=== PATIENT | male | born 1935 | race Caucasian/White ===

== ENCOUNTER 2019-07-19 10:54 | Inpatient (IN) | payer MEDICARE, BC ==
[~2019-07-19] VITALS: Ht 180.3 cm; Wt 88.5 kg
[~2019-07-19 10:54] MED LIST: AMLO10 PO; AMLO5 PO; ATOR80 PO; Aspir 8181 MG PO; COLE625 PO; FUROSEMIDE20 MG PO; IRON325 MG PO; ISOD40ER PO; Isosorbide Mono30 MG PO; KEFLEX PO; LISINOPRIL (ZESTRIL) PO; METO100ER PO; PANT40 PO; POTA10T PO; Protonix40 MG PO; Roxicodone5 MG PO; TIZA4 PO; VITAMIN D33000 UNIT PO; Vitamin D2000 UNIT PO; Zestril40 MG
[2019-07-19 11:23] LABS: Source, Urine Urostomy Bag
[2019-07-19 11:40] LABS: BASOPHILS ABSOLUTE AUTO 0.04 K/mm3 (0.00-0.23); BASOPHILS PERCENT AUTO 0 % (0-2); EOSINOPHILS ABSOLUTE AUTO 0.01 K/mm3 (0.00-0.68); EOSINOPHILS PERCENT AUTO 0 % (0-6); Hemoglobin 10.7 g/dL (13.5-17.5); IMMATURE GRAN ABSOLUTE AUTO 0.26 K/mm3 (0.00-0.10); IMMATURE GRAN PERCENT AUTO 1 % (0-1); LYMPHOCYTES ABSOLUTE AUTO 1.24 K/mm3 (0.84-5.20); LYMPHOCYTES PERCENT AUTO 5 % (21-46); MONOCYTES ABSOLUTE AUTO 1.56 K/mm3 (0.16-1.47); MONOCYTES PERCENT AUTO 6 % (4-13); Mean Corpuscular HGB 33.8 pg (26.0-34.0); Mean Corpuscular HGB Conc 32.4 g/dL (31.5-36.5); Mean Corpuscular Volume 104 fL (80-100); Mean Platelet Volume 10.6 fL (9.1-12.4); NEUTROPHILS ABSOLUTE AUTO 21.72 K/mm3 (1.96-9.15); NEUTROPHILS PERCENT AUTO 88 % (41-73); Platelet Count 287 K/mm3 (150-400); RDW Coefficient Variation 13.1 % (11.7-14.2); RDW Standard Deviation 49.9 fL (35.1-46.3); Red Blood Cell Count 3.17 M/mm3 (4.30-5.90); White Blood Cell Count 24.83 K/mm3 (4.00-11.30)
[2019-07-19 11:54] LABS: Appearance, Urine Hazy (Clear); Bilirubin, Urine Neg (Neg); Blood, Urine 2+ (Neg); Color, Urine Yellow (P-Yellow); Glucose Qualitative, Urine Neg (Neg); Ketones, Urine Neg (Neg); Leukocyte Esterase, Urine 3+ (Neg); Nitrite, Urine Pos (Neg); Protein, Urine 2+ (Neg); Urobilinogen, Urine NORM (Normal)
[2019-07-19 12:11] LABS: Albumin, Blood 3.1 g/dL (3.4-5.0); Albumin/Globulin Ratio 0.7 (0.8-1.8); Bilirubin, Total 0.7 mg/dL (0.1-1.0); Bun/Creatinine Ratio 29.9 (12.0-20.0); Calcium, Blood 8.7 mg/dL (8.5-10.1); Creatinine, Blood 1.74 mg/dL (0.60-1.20); Globulin, Blood 4.4 g/dL (2.2-4.0); Potassium, Blood 4.4 mmol/L (3.5-5.5); Total Protein, Blood 7.5 g/dL (6.4-8.2)
[2019-07-19 12:15] LABS: Bacteria Many /hpf; Squamous Epithelial Cells Not Seen /hpf (Few); White Blood Cells, Urine TNTC /hpf (0-5)
[2019-07-19 12:19] LABS: Troponin I 0.047 ng/mL (0.000-0.040)
[2019-07-19] MEDS ORDERED: Prinivil5 MG PO (13:29)
[2019-07-19] MEDS ORDERED: Isosorbide Mono60 MG PO (13:30)
[2019-07-19] MEDS ORDERED: FERSU300 PO (13:53)
[2019-07-19 13:58] LABS: International Normalized Ratio 0.99; Prothrombin Time Results 10.5 Sec (9.7-11.5)
[2019-07-19 17:34] LABS: Troponin I 0.669 ng/mL (0.000-0.040)
--- NOTE | 2019-07-19 19:57 | NUR ---
SHIFT SUMMARY 1610 PT RECEIVED FROM ER. ALERT AND ORIENTED X3. VSS, RUNNING 90% ON ROOM AIR, PLACED ON 2L OXYGEN VIA NC. C/O 6-05/19 BACK / ABDOMINAL PAIN, MEDICATED WITH PRN PAIN MEDS, PT REPOSITIONED FOR COMFORT. LUNG SOUNDS CLEAR, DIMINISHED BASES. PACED ON TELEMETRY RATE 60 PER MANAGER TESTING. MURMUR NOTED ON AUSCULTATION. HYPOACTIVE BOWEL SOUNDS NOTED, COLOSTOMY TO LUQ OF ABDOMEN, SMALL AMOUNT OF FORMED STOOLS IN COLOSTOMY BAG. UROSTOMY TO RUQ OF ABDOMEN TO GRAVITY, DRAINING YELLOW URINE. C/O NEUROPATHY TO BLE. WEAKNESS NOTED TO BLE ALONG WITH GENERALIZED WEAKNESS. CRITICAL TROPONIN CALLED TO DR. KING, NEW ORDERS RECEIVED. WILL CONTINUE TO MONITOR.
[2019-07-19 23:51] LABS: Troponin I 1.24 ng/mL (0.000-0.040)
[2019-07-20 03:49] LABS: BASOPHILS ABSOLUTE AUTO 0.05 K/mm3 (0.00-0.23); BASOPHILS PERCENT AUTO 0 % (0-2); EOSINOPHILS ABSOLUTE AUTO 0.09 K/mm3 (0.00-0.68); EOSINOPHILS PERCENT AUTO 0 % (0-6); Hematocrit 28.7 % (37.0-53.0); Hemoglobin 9.1 g/dL (13.5-17.5); IMMATURE GRAN ABSOLUTE AUTO 0.32 K/mm3 (0.00-0.10); IMMATURE GRAN PERCENT AUTO 1 % (0-1); LYMPHOCYTES PERCENT AUTO 6 % (21-46); MONOCYTES ABSOLUTE AUTO 1.15 K/mm3 (0.16-1.47); MONOCYTES PERCENT AUTO 5 % (4-13); Mean Corpuscular HGB 33.2 pg (26.0-34.0); Mean Corpuscular HGB Conc 31.7 g/dL (31.5-36.5); Mean Corpuscular Volume 105 fL (80-100); Mean Platelet Volume 11.1 fL (9.1-12.4); NEUTROPHILS ABSOLUTE AUTO 21.87 K/mm3 (1.96-9.15); NEUTROPHILS PERCENT AUTO 88 % (41-73); Platelet Count 254 K/mm3 (150-400); RDW Coefficient Variation 13.3 % (11.7-14.2); RDW Standard Deviation 50.9 fL (35.1-46.3); Red Blood Cell Count 2.74 M/mm3 (4.30-5.90); White Blood Cell Count 24.98 K/mm3 (4.00-11.30)
[2019-07-20 04:19] LABS: Albumin, Blood 2.4 g/dL (3.4-5.0); Albumin/Globulin Ratio 0.6 (0.8-1.8); Bilirubin, Total 0.5 mg/dL (0.1-1.0); Bun/Creatinine Ratio 25.6 (12.0-20.0); Creatinine, Blood 1.56 mg/dL (0.60-1.20); Globulin, Blood 3.8 g/dL (2.2-4.0); Potassium, Blood 4.6 mmol/L (3.5-5.5); Total Protein, Blood 6.2 g/dL (6.4-8.2)
--- NOTE | 2019-07-20 06:08 | NUR ---
SHIFT SUMMARY PT HAS REMAINED AOX4 THROUGHOUT SHIFT. VSS. PLEASANT AND COOPERATIVE WITH CARE. PT HAS REMAINED ON BEDREST THROUGHOUT THE NIGHT, ASSISTING WITH TURNS TOLERATED. PT HAS NOT BEEN WANTING TO TURN MUCH THROUGHOUT THE NIGHT DUE TO DISCOMFORT. ATTEMPTED ALTERNATE PAIN RELIEF TECHNIQUES, SUCH REPOSITIONING WITH LITTLE RELIEF. PT HAS REPORTED PAIN TO LOWER BACK AND LOWER ABDOMEN, BUT DENIES PAIN TO CHEST. UROSTOMY HAS DRAINED TO GRAVITY WELL WITH SIGNIFICANT OUTPUT. MEDICATED WITH STOOL SOFTENER ONCE WITH INCREASED STOOL PRODUCTION IN COLOSTOMY BAG. PT DENIES WANT FOR STAFF TO EMPTY COLOSTOMY AT THIS TIME OR REPLACE APPLIANCE WITH ONE OF THAT IS CARRIED BY FACILITY- PT STATES THAT HIS WILL BRING IN SPARE COLOSTOMY BAGS. PT HAS RESTED WELL THROUGHOUT MUCH OF THE NIGHT. HEPARIN DRIP INFUSING PER ORDERS. NO OTHER CHANGES NOTED FROM INITIAL ASSESSMENT. WILL CONTINUE TO MONITOR AND REPORT TO ONCOMING SHIFT RN. BED IN LOW POSITION, CALL LIGHT IN REACH.
--- NOTE | 2019-07-20 08:00 | NUR ---
PT RESTING IN BED THIS MORNING. ALERT AND ORIENTED X3. C/O BACK PAIN 3-02/17, MEDICATED WITH PRN PAIN MEDS WITH AM MEDS. PT STATES NO CHEST PAIN AND VERY LITTLE ABDOMINAL PAIN. PAIN IS MORE LOCALIZED TO LOW BACK. PT REPOSITIONED FOR COMFORT PT ALLOWS. LUNG SOUNDS CLEAR, DIMINISHED BASES. PACED RHYTHM ON TELEMETRY RATE 60. UROSTOMY DRAINING YELLOW URINE. COLOSTOMY BAG FILLING UP WITH FORMED SOFT STOOL, PT AWAITING TO BRING COLOSTOMY SUPPLIES TO CHANGE BAG. PT DECLINES DESIRE TO HAVE WHOLE APPLIANCE CHANGED AT THIS TIME. WEAKNESS NOTED TO BILATERAL FEET. C/O NUMBNESS TO BLE. SCDs ON. WILL CONTINUE TO MONITOR.
[2019-07-20] MEDS ORDERED: CYAN1000I IM (09:52)
--- NOTE | 2019-07-20 18:28 | NUR ---
REPORT RECEIVED FROM JOIE RN AT APPROXIMATELY 1700. DR. KING CAME BY WITH QUESTIONS IF CARDIOLOGY HAS SEEN THIS PT. PT HAS NOT BEEN SEEN BY CARDIOLOGY, BUT CONSULT HAD BEEN CALLED TO ANSWERING SERVICE YESTERDAY AROUND 1800. DR. LORD CALLED AND NOTIFIED OF CONSULT. WILL CONTINUE TO MONITOR AND REPORT TO ONCOMING RN.
--- NOTE | 2019-07-21 04:59 | NUR ---
SHIFT SUMMARY PT HAS REMAINED AOX4 THROUGHOUT SHIFT. VSS. PLEASANT AND COOPERATIVE WITH CARE. PT HAS REMAINED ON BEDREST THROUGHOUT THE NIGHT, BUT IS AGREEABLE TO TURNING MORE FREQUENTLY. PT STATES THAT PAIN HAS DECREASED SIGNIFICANTLY SINCE PREVIOUS SHIFT AND IS MORE CONCENTRATED TO BACK AND NOT ABDOMEN. UROSTOMY DRAINAGE BAG HAS REMAINED PATENT AND DRAINING TO GRAVITY THROUGHOUT SHIFT, COLOSTOMY CONTINUES TO HAVE SMALL, FIRM STOOL OUTPUT THAT OCCASIONALLY WILL CAUSE DISCOMFORT. PT HAS REMAINED NPO SINCE MIDNIGHT IN PREPARATION FOR UPCOMING PROCEDURE IN AM. HEPARIN GTT REMAINS INFUSING PER ORDERS. NO OTHER CHANGES NOTED FROM INITIAL ASSESSMENT. WILL CONTINUE TO MONITOR AND REPORT TO ONCOMING SHIFT RN. BED IN LOW POSITION, CALL LIGHT IN REACH.
--- NOTE | 2019-07-21 08:41 | NUR ---
NURSING PCU DAYSHIFT: Assumed care of pt at approx 0700. A/O, pleasant, cooperative w/care. General weakness noted, c/o chronic numbness of BLE, needs encouragement to move and participate in ADLs. Denies any pain/discomfort at rest this a.m. Skin is intact w/no breakdown noted. Tele in place, paced, no c/o CP/pressure, BP stable, no noted edema. L/S fairly cta t/o, O2 sat upper 80's to low 90's when initially placed on RA, denies dyspnea, no noted cough, continuous bedside O2 monitoring. Abd mildly distended, tender in L quadrants w/palp, ostomy to L abd w/formed stool in bag, urostomy to R abd with clear/yellow urine to drain bag. PIV x2, NS infusing at 125mls/hr, hep gtt infusing at 21.6 mls (13/u/kg/hr) as per pharmacy dosing. After being on room air for approx 15 min, O2 sat decreased to mid 80's, placed back on 2.5L NC, O2 sat now maintaining low 90's. Planning for VLAD this a.m., pt NPO at this time. Pt denies any current needs or questions regarding plan of care, awaiting rounding from children's nursery assistant and PMD, will discuss possible need for PT/OT eval. Call light in reach, cont to monitor for any changes.
[2019-07-21 09:48] LABS: BASOPHILS ABSOLUTE AUTO 0.07 K/mm3 (0.00-0.23); BASOPHILS PERCENT AUTO 0 % (0-2); EOSINOPHILS ABSOLUTE AUTO 0.47 K/mm3 (0.00-0.68); EOSINOPHILS PERCENT AUTO 2 % (0-6); Hematocrit 29.8 % (37.0-53.0); Hemoglobin 9.5 g/dL (13.5-17.5); IMMATURE GRAN ABSOLUTE AUTO 0.56 K/mm3 (0.00-0.10); IMMATURE GRAN PERCENT AUTO 2 % (0-1); LYMPHOCYTES ABSOLUTE AUTO 1.35 K/mm3 (0.84-5.20); LYMPHOCYTES PERCENT AUTO 6 % (21-46); MONOCYTES ABSOLUTE AUTO 0.92 K/mm3 (0.16-1.47); MONOCYTES PERCENT AUTO 4 % (4-13); Mean Corpuscular HGB 33.6 pg (26.0-34.0); Mean Corpuscular HGB Conc 31.9 g/dL (31.5-36.5); Mean Corpuscular Volume 105 fL (80-100); Mean Platelet Volume 10.9 fL (9.1-12.4); NEUTROPHILS ABSOLUTE AUTO 19.54 K/mm3 (1.96-9.15); NEUTROPHILS PERCENT AUTO 85 % (41-73); Platelet Count 257 K/mm3 (150-400); RDW Coefficient Variation 12.9 % (11.7-14.2); RDW Standard Deviation 49.8 fL (35.1-46.3); Red Blood Cell Count 2.83 M/mm3 (4.30-5.90); White Blood Cell Count 22.91 K/mm3 (4.00-11.30)
[2019-07-21 10:14] LABS: Bun/Creatinine Ratio 19.7 (12.0-20.0); Creatinine, Blood 1.27 mg/dL (0.60-1.20); Potassium, Blood 4.3 mmol/L (3.5-5.5); Troponin I 0.338 ng/mL (0.000-0.040)
--- NOTE | 2019-07-21 17:16 | NUR ---
NURSING PCU DAYSHIFT SUMMARY: No significant changes noted t/o the shift. VS remained stable, respiratory and cardiac status unchanged. VLAD completed this a.m. as planned, pt tolerated well and recovered w/o difficulty. Plan for angiogram on Friday, 07/23, per alodize machine helper. Seen by PMD, new d/o received. Pt worked with PT/OT, remains weak though was able to tolerate transfer OOB to chair w/one staff assist, continues to require encouragement to participate in ADL's. Hep gtt and IVF discontinued as per d/o, labs scheduled for a.m. Urostomy and colostomy changed per pt's schedule, tolerated well, both devices continue to have good output. Stool is beginning to soften w/meds as ordered. Stoma and skin under devices appear healthy w/no breakdown noted. Spouse at bedside t/o majority of the shift. Plan of care discussed t/o the day, questions addressed. Pt and family deny any questions/needs at this time. Call light remains in reach, cont to monitor until rpt is given to NOC RN.
[2019-07-22 04:22] LABS: BASOPHILS PERCENT AUTO 1 % (0-2); EOSINOPHILS ABSOLUTE AUTO 0.51 K/mm3 (0.00-0.68); EOSINOPHILS PERCENT AUTO 4 % (0-6); Hematocrit 40.2 % (37.0-53.0); Hemoglobin 13.1 g/dL (13.5-17.5); IMMATURE GRAN ABSOLUTE AUTO 0.75 K/mm3 (0.00-0.10); IMMATURE GRAN PERCENT AUTO 5 % (0-1); LYMPHOCYTES ABSOLUTE AUTO 1.02 K/mm3 (0.84-5.20); LYMPHOCYTES PERCENT AUTO 7 % (21-46); MONOCYTES ABSOLUTE AUTO 0.69 K/mm3 (0.16-1.47); MONOCYTES PERCENT AUTO 5 % (4-13); Mean Corpuscular HGB 32.9 pg (26.0-34.0); Mean Corpuscular HGB Conc 32.6 g/dL (31.5-36.5); Mean Platelet Volume 10.8 fL (9.1-12.4); NEUTROPHILS ABSOLUTE AUTO 11.09 K/mm3 (1.96-9.15); NEUTROPHILS PERCENT AUTO 78 % (41-73); NRBC ABSOLUTE 0.02 K/mm3 (0.00-0.02); NRBC Auto 0.1 /100 WBC (0.0-0.2); Platelet Count 134 K/mm3 (150-400); RDW Coefficient Variation 12.8 % (11.7-14.2); Red Blood Cell Count 3.98 M/mm3 (4.30-5.90); White Blood Cell Count 14.16 K/mm3 (4.00-11.30)
[2019-07-22 04:26] LABS: Mean Corpuscular Volume 101 fL (80-100)
[2019-07-22 04:31] LABS: Bun/Creatinine Ratio 19.8 (12.0-20.0); Creatinine, Blood 1.31 mg/dL (0.60-1.20); Magnesium, Blood 2.1 mg/dL (1.6-2.4); Potassium, Blood 4.2 mmol/L (3.5-5.5)
--- NOTE | 2019-07-22 05:53 | NUR ---
Shift Summary VSS this shift, no acute changes, pt remains alert and oriented. Pt with complaints of pain at begining of shift, medicated with oxycodone per orders with states relief, pt then able to sleep. Pt encouraged to increase movement so as not to become deconditioned during hospital stay. Pt verbalized understanding and assisted in repositioning self in bed. NO events on tele noted. Pt on CPAP with 1L bleed in. Pt denies SOB, denies CP or pressure. SCDs in place and functioning. Colostomy and urostomy patent. Bed low and locked, call light in reach, pt calls appropriately to make needs known. Will continue to monitor and provide care until day RN assumes care.
--- NOTE | 2019-07-22 08:45 | NUR ---
NURSING PCU DAYSHIFT: Assumed care of pt at approx 0700. A/O, pleasant, fairly cooperative w/care. Noted general weakness, requires much encouragement to participate in ADL's. C/O 2-3/10 low back pain, treating w/positioning and meds as ordered. Skin is intact w/no breakdown noted. Tele in place, paced, SBP 150's prior to a.m. meds, no c/o CP/pressure, no noted edema. L/S cta t/o w/dim bases, O2 sat 88-92% on RA, denies dyspnea at rest, no noted cough, continuous bedside O2 monitoring, uses CPAP during periods of sleep. Abd tender, BT+, colostomy present to L abd, urostomy present to R abd with gravity drain to bag, both appliances changed previous day. PIV x2, s/l. No s/s of acute distress at this time. Pt encouraged to get OOB this a.m. though requests to stay in bed to "rest" declining shower or transfer to chair at this time. Provided education regarding risks of staying in bed for extended periods of time, verbalized understanding. Pt denies any current needs or questions regarding plan of care. Seen by gateman, plan for angiogram tomorrow (07/23), pt to be NPO after midnight. Awaiting rounding from PMD, call light in reach, cont to monitor for any changes.
--- NOTE | 2019-07-22 16:54 | NUR ---
Initial Visit: Palliative Care Consult for Medically Fragile and Symptom Management. Pt is A&O and reports tolerable pain level of 3/10 in his lower back. Pt denies dyspnea, nausea, and anxiety. Engaged in therapeutic discussion regarding advanced care planning. Pt reports living at home with his Kelly. He reports his has been struggling with medical issues as well. Pt reports at baseline is independent of his ADL's. Pt has 2 sons, 1 lives in [place] and 1 lives in [place]. Daughter lives in [place] who is raising a disabled child. Pt is of [employer] and denies need for spiritual care visit at this time. He reports members from his temple have been visiting on a regular basis. Educated Pt on disease process and the importance to have routine discussion with PCP and pack press operator in order to plan accordingly. Encouraged Pt to consider permanent waver planning and the possibility of needing assistance with care. Discussed completing AD/POLST and Pt expresses interest. Educated on life sustaining measures including risk factors. Educated on each section to complete for POLST and advanced directive. Pt reports he will discuss with his and other family members and requests 2 copies of each form for him and his . Educated on the importance of activity during hospital stay to prevent decondition with V/U made by Pt. Suggested cardiac rehab if he qualifies and Pt reports unsure if interested but will discuss with his pack press operator during his scheduled visit. Pt reports no other concerns at this time. Spoke with bedside nurse Terri and discussed case. Palliative Care will remain available.
--- NOTE | 2019-07-22 18:21 | NUR ---
NURSING PCU DAYSHIFT SUMMARY: No significant changes noted t/o the shift. Pt continues to require encouragement to get OOB and become more active though pt c/o tiring easily. Worked with PT/OT, spent time OOB in chair while visiting w/spouse and later w/palliative care. Encourage pt to take a shower while OOB though pt stated he needed to rest. Pt planning for discharge to SNF after hospitalization. Plan remains in place for angiogram in a.m. Pt to be NPO after 2400. Pt verbalized understanding of procedure and denies any questions at this time. Call light in reach, pt able to use w/o difficulty. Cont to monitor until rpt is given to NOC RN.
[2019-07-23 04:10] LABS: Hemoglobin 9.1 g/dL (13.5-17.5); Mean Corpuscular HGB 33.6 pg (26.0-34.0); Mean Corpuscular HGB Conc 32.5 g/dL (31.5-36.5); Mean Corpuscular Volume 103 fL (80-100); Platelet Count 269 K/mm3 (150-400); RDW Standard Deviation 48.1 fL (35.1-46.3); Red Blood Cell Count 2.71 M/mm3 (4.30-5.90); White Blood Cell Count 17.86 K/mm3 (4.00-11.30)
[2019-07-23 04:20] LABS: International Normalized Ratio 0.99; Prothrombin Time Results 10.5 Sec (9.7-11.5)
[2019-07-23 04:21] LABS: Anion Gap 5 mmol/L (6-16); Blood Urea Nitrogen 22 mg/dL (8-24); Bun/Creatinine Ratio 20.2 (12.0-20.0); CO2, Blood 22 mmol/L (21-32); Calcium, Blood 7.6 mg/dL (8.5-10.1); Chloride, Blood 115 mmol/L (98-108); Creatinine, Blood 1.09 mg/dL (0.60-1.20); Glomerular Filtration Rate >60 (60-); Glucose, Blood 93 mg/dL (70-99); Potassium, Blood 3.9 mmol/L (3.5-5.5); Sodium, Blood 142 mmol/L (136-145)
--- NOTE | 2019-07-23 04:42 | NUR ---
SHIFT SUMMARY: PATIENT NPO SINCE 0000, MOVEMENT AND ADLS ENCOURAGED. COLOSTOMY AND UROSTOMY DRAINAGE PATIENT, BAGS INTACT AND SEALED WELL, CHANGED 07/22/19. VSS, CALL LIGHT WITHIN REACH, BED LOW AND LOCKED.
[2019-07-23 04:54] LABS: BAND PERCENT MAN 3 % (0-8); BASOPHILS PERCENT MAN 0 % (0-2); EOSINOPHILS ABSOLUTE MAN 0.53 K/mm3 (0.00-0.68); EOSINOPHILS PERCENT MAN 3 % (0-6); LYMPHOCYTES PERCENT MAN 9 % (21-46); MONOCYTES ABSOLUTE MAN 1.07 K/mm3 (0.16-1.47); MONOCYTES PERCENT MAN 6 % (4-13); MYELOCYTE ABSOLUTE MAN 0.17 K/mm3 (0.00-0.00); MYELOCYTE PERCENT MAN 1 % (0-0); NEUTROPHILS ABSOLUTE MAN 14.46 K/mm3 (1.96-9.15); SEG NEUTROPHILS PERCENT MAN 78 % (41-73); TOTAL CELLS COUNTED 100
--- NOTE | 2019-07-23 14:03 | NUR ---
PT ABX STARTED. EATING LUNCH. DORINA. FAMILY AT BEDSIDE.
--- NOTE | 2019-07-23 16:56 | NUR ---
Shift Summary VSS this shift, pt remains breathing easy and unlabored. Pt on RA all shift with o2 >90%. Pt denies feeling SOB or MOTTA. Pt denies CP or pressure. Alert and oriented, able to make needs known, converses appropriately, at bedside. Today is pt and pt's 's anniversary. Pt in good spirits this shift. Dr. Angeltrate in this AM to update pt on plan of care. Pt with WBC increase this am. D/t WBC count, dr. stephens cancelled angio that was planned for this shift. Plan per provider progress note. Pt on regular diet, denies nausea. Colostomy emptied, soft, formed stool. Urostomy draining clear, yellow urine. Otherwise, uneventful shift. Pt resting comfortably in bed, encouraged movement multiple times this shift. Pt worked with PT and OT. C/o pain, medicated per orders. repositioned pt to comfort. Pt in no apparent sign of distress at this time. Will continue to montior and provide care per orders.
--- NOTE | 2019-07-23 19:36 | NUR ---
Code Status: Per dr. Galindo: pt expressed that he desires CPR, Medication, and intubation. Pt states he was not aware of meaning of DNR status. Dr. Galindo to speak with Dr. Starkey about changing Code status Dr. Starkey called to ask about update on Pt code status. Per dr. starkey: Call palliative care to have further discussion with pt about code status. Palliative care called and requested by this RN to speak with pt. Palliative care states they will speak with PCU 7 Palliative called again to see if RN was able to speak with pt, per palliative care, involved with another pt at that time, will come to PCU 7 to speak with him At approx 1935, palliative called again to ask for visit with pt for code status conversation. Per palliative care, will come before end of palliative care shift to speak with pt.
--- NOTE | 2019-07-23 20:42 | NUR ---
Clinical Visit: Pt pleasant. He relayes his medical history. Discussion on code status. He understands the risk vs benefit to life saving interventions. He is wanting to be full code at this time. has advance directive form and POLST form. They will review them in the next couple days - they have 2 copies of both so that she can fill out her directives as well. Pt reports that his pain is managed. No s/s of distress noted. Will remain available to assist with advanced care planning.
[2019-07-24 04:30] LABS: Hematocrit 30.2 % (37.0-53.0); Hemoglobin 9.8 g/dL (13.5-17.5); Mean Corpuscular HGB 33.7 pg (26.0-34.0); Mean Corpuscular HGB Conc 32.5 g/dL (31.5-36.5); Mean Corpuscular Volume 104 fL (80-100); Mean Platelet Volume 10.4 fL (9.1-12.4); NRBC ABSOLUTE 0.02 K/mm3 (0.00-0.02); NRBC Auto 0.1 /100 WBC (0.0-0.2); Platelet Count 292 K/mm3 (150-400); RDW Coefficient Variation 12.8 % (11.7-14.2); RDW Standard Deviation 47.8 fL (35.1-46.3); Red Blood Cell Count 2.91 M/mm3 (4.30-5.90); White Blood Cell Count 20.55 K/mm3 (4.00-11.30)
--- NOTE | 2019-07-24 04:34 | NUR ---
SHIFT SUMMARY ASSUMED CARE OF PT AT APPROX 1900, PT ALERT & ORIENTED AND RESTING IN BED. ALL VSS AND PAIN AT ACCEPTABLE LEVEL PER PT NO INTERVENTION REQUIRED. PATIENT'S O2 SATS AT 1940 WERE AT 92 AND BELOW, AND PT C/O "HEAVY BREATHING;" PT PLACED ON 2L O2 VIA NC WHICH RESOLVED C/O "HEAVY BREATHING," UNTIL APPROX 2129 WHEN SWITCHED TO CPAP WITH 1L O2 INFUSING. PATIENT RESTED COMFORTABLY FOR THE REST OF THE SHIFT WITH NO COMPLAINTS AT BI-HOURLY ROUNDINGS, NO CALLS, AND APPROPRIATE MANNER AT NURSING INTERVENTIONS. WILL CONTINUE TO MONITOR UNTIL PASS PT AND REPORT TO ONCOMING SHIFT.
[2019-07-24 04:51] LABS: BAND PERCENT MAN 2 % (0-8); BASOPHILS PERCENT MAN 0 % (0-2); EOSINOPHILS ABSOLUTE MAN 0.82 K/mm3 (0.00-0.68); EOSINOPHILS PERCENT MAN 4 % (0-6); LYMPHOCYTES ABSOLUTE MAN 1.43 K/mm3 (0.84-5.20); LYMPHOCYTES PERCENT MAN 7 % (21-46); METAMYELOCYTE PERCENT MAN 1 % (0-0); MONOCYTES ABSOLUTE MAN 1.23 K/mm3 (0.16-1.47); MONOCYTES PERCENT MAN 6 % (4-13); MYELOCYTE ABSOLUTE MAN 0.61 K/mm3 (0.00-0.00); MYELOCYTE PERCENT MAN 3 % (0-0); NEUTROPHILS ABSOLUTE MAN 16.23 K/mm3 (1.96-9.15); SEG NEUTROPHILS PERCENT MAN 77 % (41-73); TOTAL CELLS COUNTED 100
[2019-07-24 04:58] LABS: Anion Gap 7 mmol/L (6-16); Blood Urea Nitrogen 19 mg/dL (8-24); Bun/Creatinine Ratio 16.5 (12.0-20.0); CO2, Blood 22 mmol/L (21-32); Calcium, Blood 8.2 mg/dL (8.5-10.1); Chloride, Blood 113 mmol/L (98-108); Creatinine, Blood 1.15 mg/dL (0.60-1.20); Glomerular Filtration Rate >60 (60-); Glucose, Blood 94 mg/dL (70-99); Potassium, Blood 4.3 mmol/L (3.5-5.5); Sodium, Blood 142 mmol/L (136-145)
--- NOTE | 2019-07-24 07:54 | NUR ---
ASSUMED CARE REPORT FROM ELVA WEBBER. PATIENT A&O. NS 125 ML/HR
--- NOTE | 2019-07-24 08:50 | NUR ---
MESSAGE LEFT FOR DR. MCNALLY RE: STOPPING IVF
--- NOTE | 2019-07-24 08:53 | NUR ---
DR. MCNALLY CALLED BACK. ORDER TO STOP IVF
--- NOTE | 2019-07-24 10:57 | NUR ---
MD VISIT DR. GENAO IN. PLAVIX ADDED TO MEDICATIONS FOR DISCHARGE
--- NOTE | 2019-07-24 11:58 | NUR ---
PATIENT BEING DISCHARGED TO [facility]. TRANSPORTATION WILL BE HERE AT 1445.
--- NOTE | 2019-07-24 15:10 | NUR ---
PIV'S X2 DC'D WNL. ASSISTED TO STAND TO PIVOT TO FOR TX BY [facility] TRANSP[facility].
--- NOTE | 2019-07-24 15:20 | NUR ---
REPORT GIVEN TO ELVA RUIZ OF [facility]
== END 2019-07-24 15:10 | DRG 871 ==
LOC: ER 10:54 → PCU 13:43
PROVIDERS: Emergency Medicine; Internal Medicine Interventional Cardiology; ADMIT Family Medicine
DX: A41.50 Gram-negative sepsis, unspecified (principal); I33.0 Acute and subacute infective endocarditis; I21.4 Non-ST elevation (NSTEMI) myocardial infarction; N17.9 Acute kidney failure, unspecified; I44.2 Atrioventricular block, complete; N99.531 Infection of continent stoma of urinary tract; Z87.891 Personal history of nicotine dependence; Z85.46 Personal history of malignant neoplasm of prostate; Z90.49 Acquired absence of other specified parts of digestive tract; Z90.79 Acquired absence of other genital organ(s); Z95.0 Presence of cardiac pacemaker; N18.3 Chronic kidney disease, stage 3 (moderate); I12.9 Hypertensive chronic kidney disease with stage 1 through stage 4 chronic kidney disease, or unspecified chronic kidney disease; D63.1 Anemia in chronic kidney disease; K21.9 Gastro-esophageal reflux disease without esophagitis; Z95.1 Presence of aortocoronary bypass graft; E78.00 Pure hypercholesterolemia, unspecified; I25.10 Atherosclerotic heart disease of native coronary artery without angina pectoris; Z95.2 Presence of prosthetic heart valve
CPT/HCPCS: 36415; 71046; 74177; 76770; 80048; 80053; 81001; 82550; 83605; 83690; 83735; 84484; 85025; 85610; 85730; 87040; 87077; 87086; 87186; 93005; 93010; 93306; 93312; 93325; 94762; 96361; 96365; 96374-59; 96375; 96376; 97110; 97116; 97162; 97166; 97530; 97535; 99284-25; 99285-25; A9270; C9113; J0696; J1100; J1170; J1644; J1650; J1885; J2250; J2270; J2310; J2405; J3010; J3420; J7030; Q9967

== ENCOUNTER → 2019-08-19 | Outpatient (CLI) | payer MEDICARE, BC ==
[~2019-08-19] MED LIST changes: +CYAN1000I IM; +FERSU300 PO; +Isosorbide Mono60 MG PO; +Prinivil5 MG PO
== END | disposition home or self-care (01) ==
LOC: LAB SHORT 13:57 → LAB 13:57
DX: N39.0 Urinary tract infection, site not specified (principal)
CPT/HCPCS: 87077; 87086

== ENCOUNTER 2019-09-11 04:34 | Inpatient (IN) | payer MEDICARE, BC ==
[~2019-09-11] VITALS: Ht 177.8 cm; Wt 79.7 kg
[2019-09-11 05:11] LABS: Source, Urine Urostomy Bag
[2019-09-11 05:14] LABS: Bilirubin, Urine Neg (Neg); Blood, Urine 3+ (Neg); Glucose Qualitative, Urine Neg (Neg); Ketones, Urine Neg (Neg); Leukocyte Esterase, Urine 2+ (Neg); Nitrite, Urine Neg (Neg); Protein, Urine 2+ (Neg); Urobilinogen, Urine NORM (Normal)
[2019-09-11 05:17] LABS: BASOPHILS ABSOLUTE AUTO 0.04 K/mm3 (0.00-0.23); BASOPHILS PERCENT AUTO 0 % (0-2); EOSINOPHILS ABSOLUTE AUTO 0.06 K/mm3 (0.00-0.68); EOSINOPHILS PERCENT AUTO 1 % (0-6); Hematocrit 38.6 % (37.0-53.0); Hemoglobin 12.4 g/dL (13.5-17.5); IMMATURE GRAN ABSOLUTE AUTO 0.09 K/mm3 (0.00-0.10); IMMATURE GRAN PERCENT AUTO 1 % (0-1); LYMPHOCYTES ABSOLUTE AUTO 1.62 K/mm3 (0.84-5.20); LYMPHOCYTES PERCENT AUTO 14 % (21-46); MONOCYTES ABSOLUTE AUTO 0.79 K/mm3 (0.16-1.47); MONOCYTES PERCENT AUTO 7 % (4-13); Mean Corpuscular HGB 33.1 pg (26.0-34.0); Mean Corpuscular HGB Conc 32.1 g/dL (31.5-36.5); Mean Corpuscular Volume 103 fL (80-100); NEUTROPHILS ABSOLUTE AUTO 9.26 K/mm3 (1.96-9.15); NEUTROPHILS PERCENT AUTO 78 % (41-73); RDW Coefficient Variation 13.4 % (11.7-14.2); RDW Standard Deviation 50.1 fL (35.1-46.3); Red Blood Cell Count 3.75 M/mm3 (4.30-5.90); White Blood Cell Count 11.86 K/mm3 (4.00-11.30)
[2019-09-11 05:22] LABS: Mean Platelet Volume 11.7 fL (9.1-12.4); Platelet Count 194 K/mm3 (150-400)
[2019-09-11 05:24] LABS: Appearance, Urine Hazy (Clear); Color, Urine Yellow (P-Yellow)
[2019-09-11 05:27] LABS: Amorphous Light (0-Heavy); Bacteria Mod /hpf; Squamous Epithelial Cells Rare /hpf (Few); Triple Phosphate Crystals Mod /hpf
[2019-09-11 06:10] LABS: Alanine Aminotransfer (ALT/SGP 18 U/L (12-78); Albumin, Blood 3.2 g/dL (3.4-5.0); Albumin/Globulin Ratio 0.7 (0.8-1.8); Alk Phos 89 U/L (50-136); Anion Gap 8 mmol/L (6-16); Aspartate Aminotrans (AST/SGOT 17 U/L (12-37); Bilirubin, Total 0.5 mg/dL (0.1-1.0); Blood Urea Nitrogen 20 mg/dL (8-24); Bun/Creatinine Ratio 14.4 (12.0-20.0); CO2, Blood 27 mmol/L (21-32); Calcium, Blood 9.2 mg/dL (8.5-10.1); Chloride, Blood 106 mmol/L (98-108); Creatinine, Blood 1.39 mg/dL (0.60-1.20); Globulin, Blood 4.3 g/dL (2.2-4.0); Glomerular Filtration Rate 52 (60-); Glucose, Blood 110 mg/dL (70-99); Potassium, Blood 4.7 mmol/L (3.5-5.5); Sodium, Blood 141 mmol/L (136-145); Total Protein, Blood 7.5 g/dL (6.4-8.2); Troponin I <0.015 ng/mL (0.000-0.040)
--- NOTE | 2019-09-11 18:08 | NUR ---
PT. LYING COMFORTABLY IN BED WATCHING TV. IV FLUIDS RUNNING. REPORTS PAIN IS ONLY AT A 2-3 AT THIS TIME. "NOT BAD AT ALL" PT. STATES. PT. 100% PACED AT 60. REPORTED HE THOUGHT HE PASSED A LITTE GAS. NO OTHER NOTEABLE CHANGES THIS SHIFT. HOME CPAP IN ROOM AND RT HAS CHECKED IT AND ITS READY TO GO.
[2019-09-12 04:37] LABS: BASOPHILS ABSOLUTE AUTO 0.02 K/mm3 (0.00-0.23); BASOPHILS PERCENT AUTO 0 % (0-2); EOSINOPHILS ABSOLUTE AUTO 0.39 K/mm3 (0.00-0.68); EOSINOPHILS PERCENT AUTO 3 % (0-6); Hematocrit 35.6 % (37.0-53.0); Hemoglobin 11.1 g/dL (13.5-17.5); IMMATURE GRAN ABSOLUTE AUTO 0.05 K/mm3 (0.00-0.10); IMMATURE GRAN PERCENT AUTO 0 % (0-1); LYMPHOCYTES PERCENT AUTO 7 % (21-46); MONOCYTES ABSOLUTE AUTO 0.69 K/mm3 (0.16-1.47); MONOCYTES PERCENT AUTO 5 % (4-13); Mean Corpuscular HGB 32.4 pg (26.0-34.0); Mean Corpuscular HGB Conc 31.2 g/dL (31.5-36.5); Mean Corpuscular Volume 104 fL (80-100); Mean Platelet Volume 10.5 fL (9.1-12.4); NEUTROPHILS ABSOLUTE AUTO 10.98 K/mm3 (1.96-9.15); NEUTROPHILS PERCENT AUTO 84 % (41-73); Platelet Count 259 K/mm3 (150-400); RDW Coefficient Variation 13.4 % (11.7-14.2); RDW Standard Deviation 51.2 fL (35.1-46.3); Red Blood Cell Count 3.43 M/mm3 (4.30-5.90); White Blood Cell Count 13.03 K/mm3 (4.00-11.30)
[2019-09-12 04:59] LABS: Bun/Creatinine Ratio 14.3 (12.0-20.0); Calcium, Blood 8.3 mg/dL (8.5-10.1); Creatinine, Blood 1.4 mg/dL (0.60-1.20); Potassium, Blood 4.2 mmol/L (3.5-5.5)
--- NOTE | 2019-09-12 06:38 | NUR ---
SHIFT SUMMARY PATIENT HAD NO OUTPUT FROM HIS OSTOMY. REPORTS SOME FEELING OF AIR COMING OUT OF IT. HE SLEPT WITH HIS CPAP ON ALL NIGHT. TELE SHOWS HIS HEART TO BE PACED AT 60. PATIENT REMAINS NPO. IV IN RIGHT FA PATENT AND INFUSING. BED IN LOWEST POSITION WITH WHEELS LOCKED. CALL LIGHT AND BELONGINGS WITHIN REACH. REPORT GIVEN TO ONCOMING RN.
--- NOTE | 2019-09-12 19:05 | NUR ---
PT. DOING BETTER TODAY, PASSING GAS AND HAS BEEN STARTED ON CL BY DR. VICENTE. UP IN CHAIR AND AMB IN [facility] WITH FWW AND METAL PATTERNMAKER APPRENTICE.
--- NOTE | 2019-09-13 04:47 | NUR ---
SHIFT SUMMARY PATIENT IN A PLEASANT AND COOPORATIVE MOOD. FIELD START IV IN RIGHT FOREARM REMOVED AND NEW IV PLACED IN LEFT FOREARM. IV FLUSHED AND INFUSING. PATIENT IS PASSING GAS THROUGH COLOSTOMY, BUT IS NOT PASSING STOOL YET. HE STATES THAT HE IS NO LONGER EXPERIENCING THE PAIN THAT HE HAS BEEN IN PAST DAYS. OSTOMY SYSTEMS CHANGED FOR BOTH COLOSTOMY AND UROSTOMY. BED IN LOWEST POSITION WITH BRAKES LOCKED AND ALARM ON. CALL LIGHT WITHIN REACH. REPORT GIVEN TO ONCOMING RN.
[2019-09-13 05:11] LABS: Albumin, Blood 2.6 g/dL (3.4-5.0); Anion Gap 4 mmol/L (6-16); Blood Urea Nitrogen 18 mg/dL (8-24); Bun/Creatinine Ratio 14.3 (12.0-20.0); CO2, Blood 27 mmol/L (21-32); Calcium, Blood 8.1 mg/dL (8.5-10.1); Chloride, Blood 111 mmol/L (98-108); Creatinine, Blood 1.26 mg/dL (0.60-1.20); Glomerular Filtration Rate 58 (60-); Glucose, Blood 89 mg/dL (70-99); Phosphorus, Blood 2.7 mg/dL (2.5-4.9); Potassium, Blood 4.2 mmol/L (3.5-5.5); Sodium, Blood 142 mmol/L (136-145)
--- NOTE | 2019-09-13 17:23 | NUR ---
SHIFT SUMMARY PT AXO, PLEASANT AND COOPERATIVE WITH CARE. UP FOR A WALK X3 THIS SHIFT WITH PLANS TO ABULATE AGAIN BEFORE THE END OF THE DAY. PT TOLERATING CLEAR AND FULL LIQUID DIET. PT DENIES N/V, PAIN AND SOB. VSS. UROSTOMY AND COLOSTOMY PATENT AND DRAINING. CLEAR YELLOW URINE DRAINING FROM UROSTOMY. BED IN LOW POSITION, CALL LIGHT WITHIN REACH. PT ON TELE, RUNNING PACED BETWEEN 60-70'S. IV PATENT AND SALINE LOCKED.
[2019-09-14 04:10] LABS: BASOPHILS ABSOLUTE AUTO 0.01 K/mm3 (0.00-0.23); BASOPHILS PERCENT AUTO 0 % (0-2); EOSINOPHILS ABSOLUTE AUTO 0.51 K/mm3 (0.00-0.68); EOSINOPHILS PERCENT AUTO 8 % (0-6); Hematocrit 34.5 % (37.0-53.0); Hemoglobin 10.7 g/dL (13.5-17.5); IMMATURE GRAN ABSOLUTE AUTO 0.04 K/mm3 (0.00-0.10); IMMATURE GRAN PERCENT AUTO 1 % (0-1); LYMPHOCYTES ABSOLUTE AUTO 1.82 K/mm3 (0.84-5.20); LYMPHOCYTES PERCENT AUTO 27 % (21-46); MONOCYTES ABSOLUTE AUTO 0.65 K/mm3 (0.16-1.47); MONOCYTES PERCENT AUTO 10 % (4-13); Mean Corpuscular HGB 31.8 pg (26.0-34.0); Mean Corpuscular Volume 102 fL (80-100); Mean Platelet Volume 10.1 fL (9.1-12.4); NEUTROPHILS ABSOLUTE AUTO 3.61 K/mm3 (1.96-9.15); NEUTROPHILS PERCENT AUTO 54 % (41-73); Platelet Count 248 K/mm3 (150-400); RDW Coefficient Variation 13.2 % (11.7-14.2); RDW Standard Deviation 48.3 fL (35.1-46.3); Red Blood Cell Count 3.37 M/mm3 (4.30-5.90); White Blood Cell Count 6.64 K/mm3 (4.00-11.30)
[2019-09-14 04:28] LABS: Albumin, Blood 2.7 g/dL (3.4-5.0); Anion Gap 7 mmol/L (6-16); Blood Urea Nitrogen 15 mg/dL (8-24); Bun/Creatinine Ratio 14.3 (12.0-20.0); CO2, Blood 26 mmol/L (21-32); Calcium, Blood 8.5 mg/dL (8.5-10.1); Chloride, Blood 111 mmol/L (98-108); Creatinine, Blood 1.05 mg/dL (0.60-1.20); Glomerular Filtration Rate >60 (60-); Glucose, Blood 94 mg/dL (70-99); Phosphorus, Blood 2.7 mg/dL (2.5-4.9); Sodium, Blood 144 mmol/L (136-145)
--- NOTE | 2019-09-14 05:14 | NUR ---
SHIFT SUMMARY: A/OX4. VSS. AFEB. SKIN WARM AND DRY. MAKING NEEDS KNOWN. AMB AROUND UNIT WITH 1 ASSIST. ABD SOFT, NONTENDER, NON DISTENDED. DENIES PAIN. NO APPARENT PRESENCE OF STOOL VISIBLE THROUGH COLOSTOMY POUCH. PT REPORTS PASSING "A LOT" OF FLATUS TODAY. BOWEL TONES PRESENT, HYPOACTIVE. NO N/V. BED LOW, CALL BUTTON IN REACH. SLEEPING QUIETLY WITH CPAP ON AT THIS TIME.
[2019-09-14] MEDS ORDERED: Colace100 MG PO (16:14)
--- NOTE | 2019-09-14 17:00 | NUR ---
DICSHARGE INSTRUCTIONS COMPLETED AND DISCUSSED WITH PT EXPRESSING UNDERSTANDING. NO NEW SCRIPTS REQUIRING PHARMACY FAX. PT REPORTED HE WOULD PICK IT UP OTC TOMORROW. HAS BEEN UP IN ROOM AMBULATING INDEPENDENTLY THIS AFTERNOON. TO [place] VIA W/C WITH FRIEND HERE TO PICK HIM UP.
== END 2019-09-14 16:53 | disposition home or self-care (01) | DRG 389 ==
LOC: ER 04:34 → MEDS 09:34 → ER 09:34 → MEDS 11:08 → ENPENDDIS 09-14 15:17 → MEDS 09-14 16:53
PROVIDERS: Emergency Medicine; ADMIT Internal Medicine
DX: K56.609 Unspecified intestinal obstruction, unspecified as to partial versus complete obstruction (principal); S22.089A Unspecified fracture of T11-T12 vertebra, initial encounter for closed fracture; N39.0 Urinary tract infection, site not specified; K21.9 Gastro-esophageal reflux disease without esophagitis; I12.9 Hypertensive chronic kidney disease with stage 1 through stage 4 chronic kidney disease, or unspecified chronic kidney disease; N18.3 Chronic kidney disease, stage 3 (moderate); D50.9 Iron deficiency anemia, unspecified; G47.33 Obstructive sleep apnea (adult) (pediatric); I25.10 Atherosclerotic heart disease of native coronary artery without angina pectoris; Z95.2 Presence of prosthetic heart valve; Z95.0 Presence of cardiac pacemaker; Z93.3 Colostomy status; B96.89 Other specified bacterial agents as the cause of diseases classified elsewhere
CPT/HCPCS: 36415; 74018; 74176; 80048; 80053; 80069; 81001; 83605; 83690; 84484; 85025; 87040; 87077; 87086; 94762; 96365; 96375; 97110; 97112; 97116; 97161; 97165; 97530; 97535; 99285-25; C9113; J0696; J1170; J1650; J2405; J3010; J7030; J7120

== ENCOUNTER 2019-09-29 11:03 | Inpatient (IN) | payer MEDICARE, BC ==
[~2019-09-29] VITALS: Ht 180.3 cm; Wt 79.8 kg
[~2019-09-29 11:03] MED LIST changes: +Colace100 MG PO
[2019-09-29 11:56] LABS: BASOPHILS ABSOLUTE AUTO 0.05 K/mm3 (0.00-0.23); BASOPHILS PERCENT AUTO 0 % (0-2); EOSINOPHILS ABSOLUTE AUTO 0.15 K/mm3 (0.00-0.68); EOSINOPHILS PERCENT AUTO 1 % (0-6); Hematocrit 43.3 % (37.0-53.0); Hemoglobin 13.8 g/dL (13.5-17.5); IMMATURE GRAN ABSOLUTE AUTO 0.11 K/mm3 (0.00-0.10); IMMATURE GRAN PERCENT AUTO 1 % (0-1); LYMPHOCYTES PERCENT AUTO 16 % (21-46); MONOCYTES ABSOLUTE AUTO 0.92 K/mm3 (0.16-1.47); MONOCYTES PERCENT AUTO 5 % (4-13); Mean Corpuscular HGB 32.5 pg (26.0-34.0); Mean Corpuscular HGB Conc 31.9 g/dL (31.5-36.5); Mean Corpuscular Volume 102 fL (80-100); Mean Platelet Volume 10.5 fL (9.1-12.4); NEUTROPHILS ABSOLUTE AUTO 12.98 K/mm3 (1.96-9.15); NEUTROPHILS PERCENT AUTO 77 % (41-73); Platelet Count 424 K/mm3 (150-400); RDW Coefficient Variation 14.1 % (11.7-14.2); RDW Standard Deviation 50.5 fL (35.1-46.3); Red Blood Cell Count 4.24 M/mm3 (4.30-5.90); White Blood Cell Count 16.91 K/mm3 (4.00-11.30)
[2019-09-29 12:11] LABS: Source, Urine Voided
[2019-09-29 12:12] LABS: Albumin, Blood 3.8 g/dL (3.4-5.0); Albumin/Globulin Ratio 0.8 (0.8-1.8); Bilirubin, Total 0.5 mg/dL (0.1-1.0); Calcium, Blood 9.8 mg/dL (8.5-10.1); Creatinine, Blood 1.33 mg/dL (0.60-1.20); Globulin, Blood 4.5 g/dL (2.2-4.0); Potassium, Blood 4.5 mmol/L (3.5-5.5); Total Protein, Blood 8.3 g/dL (6.4-8.2)
[2019-09-29 12:25] LABS: Bilirubin, Urine Neg (Neg); Blood, Urine 1+ (Neg); Glucose Qualitative, Urine Neg (Neg); Ketones, Urine Neg (Neg); Leukocyte Esterase, Urine 1+ (Neg); Nitrite, Urine Neg (Neg); Protein, Urine 2+ (Neg); Urobilinogen, Urine NORM (Normal)
[2019-09-29 12:40] LABS: Appearance, Urine Clear (Clear); Color, Urine Yellow (P-Yellow)
[2019-09-29 12:43] LABS: Bacteria Rare /hpf; Red Blood Cells, Urine 0-2 /hpf (0-2); Squamous Epithelial Cells Not Seen /hpf (Few)
[2019-09-29] MEDS ORDERED: COLE625 PO (15:50)
[2019-09-29] MEDS ORDERED: CYANOCOBAL1000 MCG/1 IM (15:51)
--- NOTE | 2019-09-29 18:16 | NUR ---
PATIENT ARRIVAL. CAME VIA STRETCHER, NOTED TO BE IN PAIN. RN CALLED PROVIDER TO GIVE MEDICATION PER EMAR. NG TUBE PLACED ( 1 ATTEMPT ) ON LOW INTERMITTENT SUCTION. GURGLING NOTED UPON AIR ENTRANCE THROUGH AUSCULTATION. DRAINING LIGHT GREEN TO BROWN. NEW IV PLACED LFA. IV FLUIDS ADMINISTERED.
--- NOTE | 2019-09-29 19:48 | NUR ---
PATIENT SITTING IN BED, FENTANYL 25MCQ GIVEN FOR PAIN OF THE ABDOMIN. ABDOMIN DISTENDED AND FIRM, NGT TO INTERMINTENT SUCTION WITH LIGHT BROWN BILE NOTED. NO NAUSEA AT THIS TIME. BT HYPOACTIVE, COLOSTOMY TO LEFT LOWER QUADRANT INTACT, NOTHING IN THE BAG. UROSTOMY TO THE RLQ WITH CLEAR YELLOW URINE IN IT. LUNG SOUNDS ARE CLEAR THROUGHOUT, HR REGULAR. SCDS ON AND WORKING, IV INFUSING LACTATED RINGERS. CALL LIGHT IN REACH.
--- NOTE | 2019-09-29 21:10 | NUR ---
PATIENT REPORTS PAIN OF 8-10 AFTER RECEIVING FENTANYL 25MCQ. PATIENT IS MOANING AND RESTLESS. STATES PAIN IS UNTOLERABLE. IT IS CAUSING BP TO INCREASE AND NAUSEA. CALLED HOSPITLIST MARCELINA WRAPPER STEMMER HAND. INFORMED OF SITUATION. NEW ORDERS RECEIVED FOR CHANGE IN PAIN MEDS, ALONG WITH SOME OTHER ORDERS. PLEASE SEE ORDER LIST.
[2019-09-30 05:38] LABS: Anion Gap 9 mmol/L (6-16); Blood Urea Nitrogen 25 mg/dL (8-24); Bun/Creatinine Ratio 20.8 (12.0-20.0); CO2, Blood 23 mmol/L (21-32); Calcium, Blood 9.6 mg/dL (8.5-10.1); Chloride, Blood 107 mmol/L (98-108); Glomerular Filtration Rate >60 (60-); Glucose, Blood 111 mg/dL (70-99); Potassium, Blood 4.4 mmol/L (3.5-5.5); Sodium, Blood 139 mmol/L (136-145)
--- NOTE | 2019-09-30 06:21 | NUR ---
SHIFT SUMMARY: 84 Y/O MALE ADMITTED FOR SBO. AT START OF SHIFT HE HAS ALOT OF PAIN AND DISCOMFORT. FENTANYL WAS GIVEN AND DID NOT WORK. CALLED MD GOT NEW ORDERS FOR DILAUDID, PULSE OX, NAUSEA MEDS. DILAUDID 1MG WAS GIVEN THIS RELEIVED HIS PAIN OF 10 TO A 5. HE DID DROP ON HIS PULSE OX FOR A MINUTE OR TWO BUT WITH ADJUSTMENTS UP IN BED RESOLVED IT. HE SLEPT GOOD AFTERWARDS THEN WOKE ONE OTHER TIME WITH PAIN. GAVE HIM ANOTHER DOSE, WHICH HELPED TO RELEIVE HIS PAIN. NGT HAD 350CC OF BILE OUT. IV FLUIDS INFUSED WITH 1703 IN. PO MEDS WERE HELD PER MD. VITALS HAVE REMAINED STABLE ONCE PAIN WAS STABLE. NO OTHER CHANGES OCCURED THIS SHIFT. WILL REPORT TO DAY SHIFT.
--- NOTE | 2019-09-30 18:39 | NUR ---
SHIFT SUMMARY NG TUBE REMOVED. BOWEL MOVEMENT NOTED. PATIENT TOOK A SHOWER TODAY. IN GOOD SPIRITS. NO NAUSEA, PAIN SIGNIFICANTLY DECREASED TODAY.
--- NOTE | 2019-10-01 06:12 | NUR ---
SHIFT SUMMARY PATIENT HAPPY AND PLEASANT. WAS ABLE TO SLEEP ALL NIGHT LONG. HE HAD NO C/O PAIN OR NAUSEA. IV IN LEFT ARM IS PATENT AND INFUSING LR AT 75 MLS AN HOUR. BED IN LOWEST POSITION WITH WHEELS LOCKED. CALL LIGHT AND BELONGINGS WITHIN REACH.
--- NOTE | 2019-10-01 17:18 | NUR ---
PT ALERT AND ORIENTED THROUGHOUT THIS SHIFT. PT AMBULATED THROUGHOUT THE UNIT WITH STANDBY ASSIST THIS AM. PT ADVANCED TO CLEAR LIQUID DIET THIS AM. PT TOLERATING WELL. PT UP IN CHAIR FOR LUNCH. PT HAS HAD MULTIPLE VISITORS THROUGHOUT THIS SHIFT. PT CURRENTLY RESTING IN BED.
--- NOTE | 2019-10-02 06:28 | NUR ---
SHIFT SUMMARY: VSS. AFEB. A/OX4. MAKING NEEDS KNOWN. DENIES PAIN, NAUSEA, VOMITING. NO BM OBSERVED IN COLOSTOMY POUCH. PT STATES THAT HE FEELS A SMALL AMOUNT OF BM AT THE STOMA SITE. BOWEL TONES HYPOACTIVE. ABD NONTENDER, NONDISTENDED. NO FLATUS OBSERVED IN COLOSTOMY BAG. WALKED THE HALLS X 1 TONIGHT AND HAS REMAINED IN BED SINCE. SLEPT INTERMITTENTLY THROUGHT THE NIGHT. CALL BUTTON IN REACH, BED LOW.
--- NOTE | 2019-10-02 16:45 | NUR ---
SHIFT SUMMARY: PT IS A/O X 4 AND HAS NO C/O PAIN. PT REMAINS ON CLEAR LIQUID DIET AND DENIES ANY N/V. LR CONTINUES TO RUN ORDERED. COLOSTOMY AND UROSTOMY STOMAS AND BAGS WERE BOTH CHANGED WITH HOME SUPPLIES AND THIS NURSE ASSISTED WHILE HE DID SO WITH HIS HOME ROUTINE. THEY ARE BOTH PATENT. PT IS VERY PLEASANT AND COOPERATIVE WITH HIS CARE. HIS AND DAUGHTER SPENT MOST OF THE DAY VISITING HIM. PT IS ABLE TO MAKE HIS NEEDS KNOWN AND CALLS FOR HELP WHEN NEEDED. HES WATCHING THE [employer] GAME AND HAS HIS CALL LIGHT IN REACH.
[2019-10-03 04:53] LABS: Anion Gap 5 mmol/L (6-16); Blood Urea Nitrogen 20 mg/dL (8-24); Bun/Creatinine Ratio 20.7 (12.0-20.0); CO2, Blood 28 mmol/L (21-32); Calcium, Blood 8.4 mg/dL (8.5-10.1); Chloride, Blood 110 mmol/L (98-108); Creatinine, Blood 0.96 mg/dL (0.60-1.20); Glomerular Filtration Rate >60 (60-); Glucose, Blood 98 mg/dL (70-99); Potassium, Blood 3.8 mmol/L (3.5-5.5); Sodium, Blood 143 mmol/L (136-145)
--- NOTE | 2019-10-03 05:41 | NUR ---
SHIFT SUMMARY: VSS. AFEB. A/OX4. COMMUNICATES NEEDS. ABD SOFT, NON-TENDER, MILD BLOATING. PT REPORTS PASSING GAS THROUGH COLOSTOMY. NO STOOL VISIBLE IN STOMA POUCH TONIGHT. BT ACTIVE. DENIES N/V. SLEPT THROUGH MUCH OF THE NIGHT AND HAS AWOKEN IN GOOD SPIRITS. BED LOW, CALL BUTTON IN REACH.
--- NOTE | 2019-10-03 16:13 | NUR ---
SHIFT SUMMARY: PT HAS BEEN A/O X 4 WITH NO C/O PAIN. PT DENIES ANY NAUSEA AND HAS HAD A LARGE BM TODAY. PT WAS ASSISTED TO TAKE A SHOWER THIS AFTERNOON. HIS DIET HAS BEEN ADVANCED TO FULL LIQUIDS. IV FLUIDS HAVE INFUSED ORDERED WITH NO ISSUES. PT IS VERY PLEASANT AND COOPERATIVE WITH HIS CARE. HE IS ABLE TO MAKE HIS NEEDS KNOWN AND USES HIS CALL LIGHT FOR HELP WHEN NEEDED.
--- NOTE | 2019-10-04 07:27 | NUR ---
SHIFT SUMMARY: VSS. AFEB. A/OX4. DENIES PAIN. ABD SOFT NON-TENDER, NON-DISTENDED. NO BM IN COLOSTOMY POUCH. PASSING FLATUS. UROSTOMY DRAINING YELLOW URINE WITH WHITE SEDIMENT. DENIES N/V. SLEPT WELL. BED LOW, CALL BUTTON IN REACH.
[2019-10-04] MEDS ORDERED: MIRALAX17 GM PO (14:35)
[2019-10-04] MEDS ORDERED: DOC250 PO (14:36)
--- NOTE | 2019-10-04 14:52 | NUR ---
PT HAS BEEN A/O X 4 WITH NO C/O PAIN. HE DENIES ANY NAUSEA AND HIS BOWELS CONTINUE TO MOVE. OSTOMY AND UROSTOMY REMIAN PATENT. PT DCD HOME WITH AND SON. RX FAXED TO [facility] IN [place] PER PT REQUEST. IV REMOVED WITH NO ISSUE. ALL PERSONAL BELONGINGS SENT WITH PT. ALL MEDS AND FOLLOWS UP APPTS REVIEWED WITH PT AND WHO BOTH VERBALIZE AN UNDERSTANDING. PCP FOLLOW UP SCHEDULED FOR 10/11. PT STABLE UPON DC.
== END 2019-10-04 14:58 | disposition home or self-care (01) | DRG 389 ==
LOC: ER 11:03 → MEDS 11:04 → ENPENDDIS 10-04 12:27 → MEDS 10-04 14:58
PROVIDERS: Emergency Medicine; ADMIT Internal Medicine
DX: K56.609 Unspecified intestinal obstruction, unspecified as to partial versus complete obstruction (principal); I44.2 Atrioventricular block, complete; D63.8 Anemia in other chronic diseases classified elsewhere; D72.829 Elevated white blood cell count, unspecified; I25.10 Atherosclerotic heart disease of native coronary artery without angina pectoris; Z95.2 Presence of prosthetic heart valve; K21.9 Gastro-esophageal reflux disease without esophagitis; C61 Malignant neoplasm of prostate; Z95.1 Presence of aortocoronary bypass graft; N18.9 Chronic kidney disease, unspecified; I12.9 Hypertensive chronic kidney disease with stage 1 through stage 4 chronic kidney disease, or unspecified chronic kidney disease; Z93.3 Colostomy status; Z96.3 Presence of artificial larynx; Z95.0 Presence of cardiac pacemaker; Z85.048 Personal history of other malignant neoplasm of rectum, rectosigmoid junction, and anus; Z87.891 Personal history of nicotine dependence
CPT/HCPCS: 36415; 74176; 80048; 80053; 81001; 83690; 85025; 93005; 93010; 94660; 94762; 96361; 96372; 96374; 96375; 96376; 99285-25; G0378; J1170; J1650; J2405; J3010; J3420; J7120

== ENCOUNTER 2019-10-19 07:49 | Day surgery (SDC) | payer MEDICARE, BC ==
[~2019-10-19] VITALS: Ht 177.8 cm; Wt 82.0 kg
[~2019-10-19 07:49] MED LIST changes: +ACET325 PO; +CLOP75 PO; +CYANOCOBAL1000 MCG/1 IM; +DOC250 PO; +MELA3 PO; +MIRALAX17 GM PO; +NITR.4SL SL; +TRAM50 PO; +TRAZ50 PO
--- NOTE | 2019-10-19 13:25 | NUR ---
ASSUMED CARE OF PT AT THIS TIME. PT RESTING ON L SIDE. SITES REMAIN CLEAR. L RADIAL TR BAND IN PLACE AND R FEMORAL SITE. VSS. NADN. PT REPORTS, "I THINK THE TYLENOL IS HELPING". CALL LIGHT WITHIN REACH. FAMILY AT BEDSIDE.
--- NOTE | 2019-10-19 13:57 | NUR ---
DR GENAO TO ROOM DISCUSSING PLAN OF CARE WITH PT AND FAMILY. VSS
--- NOTE | 2019-10-19 15:08 | NUR ---
PT AND S/O VERBALIZES UNDERSTANDING WRITTEN AND VERBAL ORDERS. DENIES QUESTIONS. VSS. BOTH SITES REMAIN CLEAR
--- NOTE | 2019-10-19 15:47 | NUR ---
PT TR BAND DEFLATED. NO BLEEDING OR HEMATOMA NOTED. VSS. R FEM SITE REMAINS STABLE. CALL LIGHT WITHIN REACH. FAMILY REMAINS AT BEDSIDE.
--- NOTE | 2019-10-19 16:35 | NUR ---
ASSUMED CARE OF PT. PT IS ALET AND ORIENTED, PLEASENT AND COOPERATIVE. PT DENIES PAIN, SOB OR NAUSEA. MONITOR V PACED 60-70'S, B/P 141/81, SPO2 97% RA. R FEMORAL SITE NO SWELLING/HEMATOMA, YUSEF AND TEGADERM DRSG INTACT, RLE PULSES 1+ X 2. L RADIAL SITE NO SWELLING/HEMATOMA, TR BAND IN PLACE-FULLY DELFATED. PT'S AT BEDSIDE ATTENTIVE.
--- NOTE | 2019-10-19 16:50 | NUR ---
PT AMB IN THE RECOVERY ROOM AND OUT TO THE [facility], R GROIN AND L RADIAL SITES UNCHANGED.
--- NOTE | 2019-10-19 17:20 | NUR ---
PT WAS ASSISTED GETTING DRESSED, R GROIN AND L RADIAL SITE UNCHANGED; TR BAND REMOVED WITH CLOTH DOT AND WRIST IMMOBILIZER PLACED. IV REMOVED-CANNULA INTACT.
--- NOTE | 2019-10-19 17:30 | NUR ---
REVIEWED DISCHARGE INSTRUCTIONS, MED LIST AND "AFTER CARE" INSTRUCTIONS WITH PT AND ; VERBALIZED GOOD UNDERSTANDING. PT LEFT FACILITY VIA W/C, CONDITION STABLE.
== END 2019-10-19 17:30 | disposition home or self-care (01) ==
LOC: MHTC 07:49
PROC: B201YZZ Plain Radiography of Multiple Coronary Arteries using Other Contrast (ICD-10-PCS; principal; 2019-10-19)
PROC: B205YZZ Plain Radiography of Left Heart using Other Contrast (ICD-10-PCS; principal; 2019-10-19)
PROC: 4A023N7 Measurement of Cardiac Sampling and Pressure, Left Heart, Percutaneous Approach (ICD-10-PCS; principal; 2019-10-19)
PROC: B203YZZ Plain Radiography of Multiple Coronary Artery Bypass Grafts using Other Contrast (ICD-10-PCS; principal; 2019-10-19)
DX: I21.4 Non-ST elevation (NSTEMI) myocardial infarction (principal); I25.10 Atherosclerotic heart disease of native coronary artery without angina pectoris; Y71.2 Prosthetic and other implants, materials and accessory cardiovascular devices associated with adverse incidents; I34.0 Nonrheumatic mitral (valve) insufficiency; I13.0 Hypertensive heart and chronic kidney disease with heart failure and stage 1 through stage 4 chronic kidney disease, or unspecified chronic kidney disease; N18.9 Chronic kidney disease, unspecified; E78.5 Hyperlipidemia, unspecified; K21.9 Gastro-esophageal reflux disease without esophagitis; G47.33 Obstructive sleep apnea (adult) (pediatric); Z95.1 Presence of aortocoronary bypass graft; T82.897A Other specified complication of cardiac prosthetic devices, implants and grafts, initial encounter; Z99.89 Dependence on other enabling machines and devices; Z79.82 Long term (current) use of aspirin; Z79.899 Other long term (current) drug therapy; Z87.891 Personal history of nicotine dependence; Z95.0 Presence of cardiac pacemaker
CPT/HCPCS: 93005; 93010; 93459; 99152; 99153; A9270; C1769; C1894; J1644; J2250; J3010; J7030; Q9967

== ENCOUNTER 2019-10-26 07:41 | Day surgery (SDC) | payer MEDICARE, BC ==
[~2019-10-26] VITALS: Ht 182.9 cm; Wt 82.0 kg
[2019-10-26 08:59] LABS: Bun/Creatinine Ratio 15.3 (12.0-20.0); Calcium, Blood 8.9 mg/dL (8.5-10.1); Creatinine, Blood 1.44 mg/dL (0.60-1.20); Potassium, Blood 4.4 mmol/L (3.5-5.5)
--- NOTE | 2019-10-26 12:00 | NUR ---
ADMIT ASSESMENT PT FROM FACILITY TECHNICIAN VIA ICU BED AND MONITOR FOR EXTENDED RECOVERY. PT CALM COOPERATIVE AND ALERT AND ORIENT TIMES 4. PT VERY PLEASENT AND DENIES PAIN. HYPERTENSIVE AND RIGHT RADIAL TR BAND IN PLACE WITH 10ML IN THE [place] AND WILL DEFLATE PER PROTOCOL. SPO2 PLACED ON AFFECTED LIMB WITH GOOD PLETH AND WARM AND PINK TO THE TOUCH WITH GOOD CAP REFILL. PACED WITH FREQ PVCS, K+ 4.4. NS PER MD ORDER. RA AND SATS WNL CLEAR AND DIM BILAT AND NO S/S OF RESP DISTRESS. WILL ADVANCE DIET TOLERATED. LEFT LOWER QUAD COLOTOMY IN PLACE AND IN TACT DRAINING FORMED BROW STOOL. RIGHT LOWER QUAD UROSTOMY IN PLACE AND INTACT DRAINING CLEAR YELLOW URINE AND CONVERTED TO BAG DRAINING SYSTEM. SKIN INTACT WILL CONT TO MONITOR AND WEAN TR BAND PER PROTOCOL.
--- NOTE | 2019-10-26 16:47 | NUR ---
PT UPDATE WEANING TR BAND TOLERATED AND MONITORING FOR BLEEDING. SPO2 PLETH REMAINS OF GOOD QUALITY WARM AND PINK DISTAL TEMP AND COLOR, DENIES PAIN AT THIS TIME. COLOSTOMY BAG CHANGED WITH MED BROWN FORMED STOOL, SITE CDI. UROSTOMY DRAINING. GOOD APPETITE AND NO N/V. WILL CONT TO MONITOR
--- NOTE | 2019-10-26 20:00 | NUR ---
ASSUMED CARE OF PT AT 1915. REPORT RECEIVED AT BEDSIDE. PT PRESENTS IN BED. ALERT AND ORIENTED. PLEASANT AND COOPERATIVE WITH CARE AND ASSESSMENT. DENIES COMPLAINTS OF CHEST PAIN OR PRESSURE. LEFT TR BAND CHECKED AND VERIFIED WITH OFFGOING RN. SOME BLOOD NOTED UNDER TR BAND WHICH OFFGOING RN STATES HAS NOT CHANGED. WILL ASSESS FOR ABILITY TO CONTINUE TO DEFLATE CUFF. TEACHING OF PCI PROCEDURE AND STENTS. ALSO PLAN TO REMOVE TR BAND. WILL REVIEW CHART AND PLAN OF CARE FOR THIS PT.
--- NOTE | 2019-10-26 22:34 | NUR ---
CONTINUING TO DEFLATE TR BAND ABLE. MILD OOZING NOTED WHEN 2 ML WAS LET OUT OF CUFF. REINFLATED BY 1 ML. WILL MONITOR FOR OOZING. NO HEMATOMA NOTED. PT UPDATED ON PROCESS.
--- NOTE | 2019-10-27 00:45 | NUR ---
HAVE REMOVED TR BAND. SITE CLEANED. NO OOZING OR HEMATOMA TO NOTE. TRANSPARENT DRESSING APPLIED OVER PUNCTURE SITE. ARM BOARD PLACED TO PROTECT AREA. PT INSTRUCTION GIVEN ON RESTRICTIONS CONCERNING RADIAL ACCESS AND LIMITATIONS. PT VOICES UNDERSTANDING.
[2019-10-27 03:44] LABS: BASOPHILS ABSOLUTE AUTO 0.04 K/mm3 (0.00-0.23); BASOPHILS PERCENT AUTO 0 % (0-2); EOSINOPHILS ABSOLUTE AUTO 0.34 K/mm3 (0.00-0.68); EOSINOPHILS PERCENT AUTO 3 % (0-6); Hematocrit 34.6 % (37.0-53.0); Hemoglobin 11.2 g/dL (13.5-17.5); IMMATURE GRAN ABSOLUTE AUTO 0.06 K/mm3 (0.00-0.10); IMMATURE GRAN PERCENT AUTO 1 % (0-1); LYMPHOCYTES ABSOLUTE AUTO 1.92 K/mm3 (0.84-5.20); LYMPHOCYTES PERCENT AUTO 18 % (21-46); MONOCYTES ABSOLUTE AUTO 0.86 K/mm3 (0.16-1.47); MONOCYTES PERCENT AUTO 8 % (4-13); Mean Corpuscular HGB 31.5 pg (26.0-34.0); Mean Corpuscular HGB Conc 32.4 g/dL (31.5-36.5); Mean Corpuscular Volume 97 fL (80-100); Mean Platelet Volume 10.3 fL (9.1-12.4); NEUTROPHILS ABSOLUTE AUTO 7.63 K/mm3 (1.96-9.15); NEUTROPHILS PERCENT AUTO 70 % (41-73); Platelet Count 299 K/mm3 (150-400); RDW Standard Deviation 50.2 fL (35.1-46.3); Red Blood Cell Count 3.56 M/mm3 (4.30-5.90); White Blood Cell Count 10.85 K/mm3 (4.00-11.30)
[2019-10-27 04:01] LABS: Anion Gap 5 mmol/L (6-16); Blood Urea Nitrogen 19 mg/dL (8-24); Bun/Creatinine Ratio 16.8 (12.0-20.0); CO2, Blood 25 mmol/L (21-32); Calcium, Blood 8.3 mg/dL (8.5-10.1); Chloride, Blood 112 mmol/L (98-108); Creatinine, Blood 1.13 mg/dL (0.60-1.20); Glomerular Filtration Rate >60 (60-); Glucose, Blood 104 mg/dL (70-99); Potassium, Blood 3.9 mmol/L (3.5-5.5); Sodium, Blood 142 mmol/L (136-145)
--- NOTE | 2019-10-27 04:51 | NUR ---
PT HAS BEEN ABLE TO REST COMFORTABLE IN BED. NO COMPLAINTS OF CHEST PAIN OR PRESSURE. VSS. MOVES ABOUT IN BED ON HIS OWN. STENT, PROCEDURE, RADIAL ACCESS SITE, AND POST PROCEDURE CARE AND ANTICOAGULATION DONE. WILL CONTINUE TO MONITOR PT, AND WILL REPORT OFF TO ONCOMING RN. PT DID HAVE SMALL ENDURATION TO LEFT WRIST RADIAL ACCESS SITE. GENTLE REDUCTION DONE. PT TOLERATES WELL, AND NO FURTHER HEMATOMA/ENDURATION TO NOTE.
[2019-10-27] MEDS ORDERED: CLOP75 PO (09:52)
== END 2019-10-27 10:45 | disposition home or self-care (01) ==
LOC: MHTC 07:41 → ICUE 11:50 → MHTC 12:27 → ICUE 12:27 → MHTC 10-27 10:45 → ICUE 10-27 10:45
PROVIDERS: Internal Medicine Interventional Cardiology
PROC: 02C13ZZ Extirpation of Matter from Coronary Artery, Two Arteries, Percutaneous Approach (ICD-10-PCS; principal; 2019-10-26)
PROC: 0271356 Dilation of Coronary Artery, Two Arteries, Bifurcation, with Two Drug-eluting Intraluminal Devices, Percutaneous Approach (ICD-10-PCS; principal; 2019-10-26)
DX: I25.119 Atherosclerotic heart disease of native coronary artery with unspecified angina pectoris (principal); I12.9 Hypertensive chronic kidney disease with stage 1 through stage 4 chronic kidney disease, or unspecified chronic kidney disease; E11.22 Type 2 diabetes mellitus with diabetic chronic kidney disease; N18.9 Chronic kidney disease, unspecified; G47.33 Obstructive sleep apnea (adult) (pediatric); E78.5 Hyperlipidemia, unspecified; Z95.2 Presence of prosthetic heart valve; Z95.1 Presence of aortocoronary bypass graft; Z79.82 Long term (current) use of aspirin; Z79.899 Other long term (current) drug therapy
CPT/HCPCS: 36415; 76937; 80048; 85025; 85347; 92978; 96372; 99152; 99153; C1724; C1725; C1753; C1769; C1874; C1887; C1894; C9113; C9602; G0378; J1644; J2250; J3010; J3420; J7030; Q9967

== ENCOUNTER 2021-03-21 13:56 | Inpatient (IN) | payer MEDICARE, BC ==
[~2021-03-21] VITALS: Ht 177.8 cm; Wt 82.0 kg
[~2021-03-21 13:56] MED LIST changes: +DOCU100 PO; +FEROSUL325 M1 PO; +FURO20 PO; +LIDO700A20 TOP; +LIPITOR 40 MG PO; +LISI5 PO; +Plavix75 MG PO
[2021-03-21 16:32] LABS: BASOPHILS ABSOLUTE AUTO 0.04 K/mm3 (0.00-0.23); BASOPHILS PERCENT AUTO 0 % (0-2); EOSINOPHILS ABSOLUTE AUTO 0.01 K/mm3 (0.00-0.68); EOSINOPHILS PERCENT AUTO 0 % (0-6); Hematocrit 41.9 % (37.0-53.0); Hemoglobin 13.8 g/dL (13.5-17.5); IMMATURE GRAN ABSOLUTE AUTO 0.16 K/mm3 (0.00-0.10); IMMATURE GRAN PERCENT AUTO 1 % (0-1); LYMPHOCYTES ABSOLUTE AUTO 1.52 K/mm3 (0.84-5.20); LYMPHOCYTES PERCENT AUTO 6 % (21-46); MONOCYTES ABSOLUTE AUTO 1.88 K/mm3 (0.16-1.47); MONOCYTES PERCENT AUTO 8 % (4-13); Mean Corpuscular HGB 30.7 pg (26.0-34.0); Mean Corpuscular HGB Conc 32.9 g/dL (31.5-36.5); Mean Corpuscular Volume 93 fL (80-100); Mean Platelet Volume 10.8 fL (9.1-12.4); NEUTROPHILS ABSOLUTE AUTO 21.38 K/mm3 (1.96-9.15); NEUTROPHILS PERCENT AUTO 86 % (41-73); Platelet Count 356 K/mm3 (150-400); RDW Coefficient Variation 16.2 % (11.7-14.2); RDW Standard Deviation 54.9 fL (35.1-46.3); White Blood Cell Count 24.99 K/mm3 (4.00-11.30)
[2021-03-21 17:02] LABS: BASOPHILS PERCENT MAN 0 % (0-2); EOSINOPHILS PERCENT MAN 0 % (0-6); LYMPHOCYTES ABSOLUTE MAN 0.24 K/mm3 (0.84-5.20); LYMPHOCYTES PERCENT MAN 1 % (21-46); MONOCYTES ABSOLUTE MAN 1.99 K/mm3 (0.16-1.47); MONOCYTES PERCENT MAN 8 % (4-13); NEUTROPHILS ABSOLUTE MAN 22.74 K/mm3 (1.96-9.15); SEG NEUTROPHILS PERCENT MAN 91 % (41-73); TOTAL CELLS COUNTED 100
[2021-03-21 17:11] LABS: Albumin, Blood 3.4 g/dL (3.4-5.0); Albumin/Globulin Ratio 0.7 (0.8-1.8); Bilirubin, Total 0.5 mg/dL (0.1-1.0); Bun/Creatinine Ratio 22.4 (12.0-20.0); Calcium, Blood 9.5 mg/dL (8.5-10.1); Creatinine, Blood 1.96 mg/dL (0.60-1.20); Globulin, Blood 4.8 g/dL (2.2-4.0); Potassium, Blood 6.9 mmol/L (3.5-5.5); Total Protein, Blood 8.2 g/dL (6.4-8.2)
[2021-03-21 17:25] LABS: Calcium, Ionized (POC) 1.25 mmol/L (1.10-1.46); Chloride (POC) 104 mmol/L (98-108); Glucose (ISTAT POC) 96 mg/dL (70-99); Hemoglobin (POC) 13.3 g/dL (13.5-17.5); Potassium (POC) 6.8 mmol/L (3.5-5.5); Sodium (POC) 134 mmol/L (135-148); Total CO2 (POC) 24 mmol/L (21-32)
[2021-03-21] MEDS ORDERED: Isosorbide Mono60 MG PO (19:59)
[2021-03-21] MEDS ORDERED: FURO20 PO (20:00)
[2021-03-21] MEDS ORDERED: CALCITONIN-SAL3.7 M5 (20:01)
[2021-03-21] MEDS ORDERED: SULFAMETHOXAZO1 EAC1 PO (20:07)
[2021-03-21 21:34] LABS: Bun/Creatinine Ratio 22.2 (12.0-20.0); Calcium, Blood 8.8 mg/dL (8.5-10.1); Creatinine, Blood 1.89 mg/dL (0.60-1.20); Potassium, Blood 5.5 mmol/L (3.5-5.5)
[2021-03-22 04:55] LABS: Hematocrit 35.7 % (37.0-53.0); Hemoglobin 11.6 g/dL (13.5-17.5); Mean Corpuscular HGB 30.7 pg (26.0-34.0); Mean Corpuscular HGB Conc 32.5 g/dL (31.5-36.5); Mean Corpuscular Volume 94 fL (80-100); Mean Platelet Volume 10.5 fL (9.1-12.4); Platelet Count 274 K/mm3 (150-400); RDW Coefficient Variation 16.5 % (11.7-14.2); RDW Standard Deviation 57.1 fL (35.1-46.3); Red Blood Cell Count 3.78 M/mm3 (4.30-5.90); White Blood Cell Count 22.51 K/mm3 (4.00-11.30)
[2021-03-22 05:20] LABS: Bun/Creatinine Ratio 22.8 (12.0-20.0); Calcium, Blood 8.6 mg/dL (8.5-10.1); Creatinine, Blood 1.71 mg/dL (0.60-1.20); Potassium, Blood 5.5 mmol/L (3.5-5.5)
--- NOTE | 2021-03-22 06:28 | NUR ---
SHIFT SUMMARY PT A&OX4, PLEASANT. SP02>92% ON RA. TELEMETRY READS PACED, HR 60'S. PT HAS ILEOSTOMY WHICH FILLED W/ BROWN, UNFORMED, PASTY STOOL. BAG CHANGED X2 DURING SHIFT. PT HAS UROSTOMY DRAINING TO GRAVITY. PT C/O OF 8/10 INTERMITTENT PAIN, MORPHINE GIVEN X1. PT STATED RELIEF FROM INTERMITTENT PAIN AFTER 2ND COLOSTOMY BAG CHANGE. PT REMAINED NPO. PT SLEPT OFF AND ON DURING SHIFT. CALL LIGHT IN REACH. WILL GIVE REPORT TO ONCOMING NURSE.
--- NOTE | 2021-03-22 13:35 | NUR ---
michael with [employer] is talking with the pt at this time.
--- NOTE | 2021-03-22 13:58 | NUR ---
PT IS EATING WITH GOOD APPETITE.
--- NOTE | 2021-03-22 15:30 | NUR ---
Spiritual care visit conducted. Patient is alert and tells me about his current medical issues but then talks at length about his medical history. He talks about cancers, major heart surgeries, sepsis and on and on and yet he maintains peace and hope. He explains about his [employer]ology marianne and the strength that he gains from his prayers and from attending the [facility]. 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 I reinforce helpful attitudes and practices and provide recitation of scripture, pastoral domestic violence counselor and prayer. Patient responds well and shows signs of being encouraged in his marianne. I will continue to remain available to patient and family.
--- NOTE | 2021-03-22 16:21 | NUR ---
Ate late lunch regular food, and reports no discomfort.
[2021-03-23 03:44] LABS: Hematocrit 34.2 % (37.0-53.0); Hemoglobin 11.1 g/dL (13.5-17.5); Mean Corpuscular HGB 30.3 pg (26.0-34.0); Mean Corpuscular HGB Conc 32.5 g/dL (31.5-36.5); Mean Corpuscular Volume 93 fL (80-100); Mean Platelet Volume 10.7 fL (9.1-12.4); Platelet Count 256 K/mm3 (150-400); RDW Coefficient Variation 16.4 % (11.7-14.2); RDW Standard Deviation 56.2 fL (35.1-46.3); Red Blood Cell Count 3.66 M/mm3 (4.30-5.90); White Blood Cell Count 13.38 K/mm3 (4.00-11.30)
[2021-03-23 04:14] LABS: Albumin, Blood 2.7 g/dL (3.4-5.0); Anion Gap 4 mmol/L (6-16); Blood Urea Nitrogen 39 mg/dL (8-24); Bun/Creatinine Ratio 20.3 (12.0-20.0); CO2, Blood 26 mmol/L (21-32); Calcium, Blood 8.3 mg/dL (8.5-10.1); Chloride, Blood 105 mmol/L (98-108); Creatinine, Blood 1.92 mg/dL (0.60-1.20); Glomerular Filtration Rate 36 (60-); Glucose, Blood 95 mg/dL (70-99); Phosphorus, Blood 2.7 mg/dL (2.5-4.9); Potassium, Blood 4.8 mmol/L (3.5-5.5); Sodium, Blood 135 mmol/L (136-145)
--- NOTE | 2021-03-23 05:59 | NUR ---
SHIFT SUMMARY PT A&OX4, PLEASANT. SP02>92% ON RA. TELEMETRY READS PACED, HR 60'S. PT HAS ILEOSTOMY WHICH FILLED W/ BROWN, UNFORMED, PASTY STOOL. BAG CHANGED X1 DURING SHIFT. PT HAS UROSTOMY DRAINING YELLOW, CLOUDY URINE TO GRAVITY. PT C/O OF LOWER BACK PAIN, MEDICATED W/ TYLENOL PER EMAR AND ENCOURAGED REPOSITIONING W/ SUCCESSFUL RELIEF OF PAIN. PT REMAINED NPO. PT SLEPT OFF AND ON DURING NIGHT. CALL LIGHT IN REACH. WILL GIVE REPORT TO ONCOMING NURSE.
--- NOTE | 2021-03-23 07:29 | NUR ---
Alert, cooperative, and cheerfully conversant this morning. States he is amazed at how quickly he is feeling better. Requesting coffee this morning, and states he is planning to do some walking around the unit today. States took a walk yesterday evening without difficulty. Would also like to get into the shower today.
--- NOTE | 2021-03-23 11:23 | NUR ---
Dr. Kumar here to see the patient.
[2021-03-23] MEDS ORDERED: MIRALAX17 GM PO (12:17)
[2021-03-23] MEDS ORDERED: LEVO750 PO (12:18)
== END 2021-03-23 14:00 | disposition home or self-care (01) | DRG 392 ==
LOC: ER 13:56 → PCU 18:01
PROVIDERS: Emergency Medicine; Internal Medicine; ADMIT Internal Medicine
DX: K59.00 Constipation, unspecified (principal); N17.9 Acute kidney failure, unspecified; E87.2 Acidosis; I44.2 Atrioventricular block, complete; T83.518A Infection and inflammatory reaction due to other urinary catheter, initial encounter; N39.0 Urinary tract infection, site not specified; E87.5 Hyperkalemia; T36.8X5A Adverse effect of other systemic antibiotics, initial encounter; E86.0 Dehydration; I12.9 Hypertensive chronic kidney disease with stage 1 through stage 4 chronic kidney disease, or unspecified chronic kidney disease; N18.30 Chronic kidney disease, stage 3 unspecified; I25.10 Atherosclerotic heart disease of native coronary artery without angina pectoris; J98.4 Other disorders of lung; Z87.891 Personal history of nicotine dependence; Z85.038 Personal history of other malignant neoplasm of large intestine; Z85.46 Personal history of malignant neoplasm of prostate; Z95.3 Presence of xenogenic heart valve; Z95.0 Presence of cardiac pacemaker; Z95.1 Presence of aortocoronary bypass graft; Z93.3 Colostomy status; Z79.899 Other long term (current) drug therapy; Z79.82 Long term (current) use of aspirin; Z79.891 Long term (current) use of opiate analgesic; Z79.02 Long term (current) use of antithrombotics/antiplatelets
CPT/HCPCS: 36415; 74177; 80047; 80048; 80053; 80069; 83605; 83690; 85014; 85025; 85027; 87040; 94762; 96374-59; 96375; 97110; 97116; 97162; 97165; 97530; 99285-25; A9270; J0696; J1644; J1815; J2270; J2405; J7050; J7120; Q9967

== ENCOUNTER 2022-09-07 12:00 | Observation (INO) | payer MEDICARE, BC ==
[~2022-09-07] VITALS: Ht 177.8 cm; Wt 86.2 kg
[~2022-09-07 12:00] MED LIST changes: +CALCITONIN-SAL3.7 M5; +LEVO750 PO; +SULFAMETHOXAZO1 EAC1 PO
[2022-09-07 15:18] LABS: BASOPHILS ABSOLUTE AUTO 0.04 K/mm3 (0.00-0.23); BASOPHILS PERCENT AUTO 0 % (0-2); EOSINOPHILS ABSOLUTE AUTO 0.25 K/mm3 (0.00-0.68); EOSINOPHILS PERCENT AUTO 2 % (0-6); Hematocrit 31.5 % (37.0-53.0); Hemoglobin 10.1 g/dL (13.5-17.5); IMMATURE GRAN ABSOLUTE AUTO 0.12 K/mm3 (0.00-0.10); IMMATURE GRAN PERCENT AUTO 1 % (0-1); LYMPHOCYTES PERCENT AUTO 12 % (21-46); MONOCYTES ABSOLUTE AUTO 1.07 K/mm3 (0.16-1.47); MONOCYTES PERCENT AUTO 9 % (4-13); Mean Corpuscular HGB 30.6 pg (26.0-34.0); Mean Corpuscular HGB Conc 32.1 g/dL (31.5-36.5); Mean Corpuscular Volume 96 fL (80-100); Mean Platelet Volume 10.7 fL (9.1-12.4); NEUTROPHILS PERCENT AUTO 76 % (41-73); Platelet Count 368 K/mm3 (150-400); RDW Standard Deviation 51.8 fL (35.1-46.3); White Blood Cell Count 12.38 K/mm3 (4.00-11.30)
[2022-09-07 15:40] LABS: Albumin, Blood 2.6 g/dL (3.4-5.0); Albumin/Globulin Ratio 0.5 (0.8-1.8); Bilirubin, Total 0.5 mg/dL (0.1-1.0); Bun/Creatinine Ratio 19.6 (12.0-20.0); Calcium, Blood 8.5 mg/dL (8.5-10.1); Creatinine, Blood 1.68 mg/dL (0.60-1.20); Potassium, Blood 4.1 mmol/L (3.5-5.5); Total Protein, Blood 7.6 g/dL (6.4-8.2)
[2022-09-07] MEDS ORDERED: LISI5 PO (18:55)
[2022-09-07] MEDS ORDERED: ICOSAPENT ETHYL1 GM PO (18:57)
[2022-09-07] MEDS ORDERED: FURO40 PO (18:58)
[2022-09-07] MEDS ORDERED: Naproxen375 MG PO (19:00)
--- NOTE | 2022-09-07 21:26 | NUR ---
09/07/222125 Adi Lerma PT RECIEVED ZOSYN IV IN ER PRIOR TO ARRIVAL TO OR. CONFIRMED WITH DR KOCH.
[2022-09-08 04:58] LABS: BASOPHILS ABSOLUTE AUTO 0.03 K/mm3 (0.00-0.23); BASOPHILS PERCENT AUTO 0 % (0-2); EOSINOPHILS ABSOLUTE AUTO 0.01 K/mm3 (0.00-0.68); EOSINOPHILS PERCENT AUTO 0 % (0-6); Hemoglobin 9.2 g/dL (13.5-17.5); IMMATURE GRAN PERCENT AUTO 1 % (0-1); LYMPHOCYTES ABSOLUTE AUTO 0.62 K/mm3 (0.84-5.20); LYMPHOCYTES PERCENT AUTO 7 % (21-46); MONOCYTES ABSOLUTE AUTO 0.09 K/mm3 (0.16-1.47); MONOCYTES PERCENT AUTO 1 % (4-13); Mean Corpuscular HGB Conc 30.7 g/dL (31.5-36.5); Mean Corpuscular Volume 98 fL (80-100); Mean Platelet Volume 10.8 fL (9.1-12.4); NEUTROPHILS ABSOLUTE AUTO 8.47 K/mm3 (1.96-9.15); NEUTROPHILS PERCENT AUTO 91 % (41-73); Platelet Count 319 K/mm3 (150-400); RDW Standard Deviation 54.1 fL (35.1-46.3); Red Blood Cell Count 3.07 M/mm3 (4.30-5.90); White Blood Cell Count 9.32 K/mm3 (4.00-11.30)
[2022-09-08 05:14] LABS: Bun/Creatinine Ratio 19.3 (12.0-20.0); Calcium, Blood 8.3 mg/dL (8.5-10.1); Creatinine, Blood 1.5 mg/dL (0.60-1.20); Potassium, Blood 4.4 mmol/L (3.5-5.5)
--- NOTE | 2022-09-08 05:36 | NUR ---
A/OX4; CALM AND COOPERATIVE. C/O R GROIN INCISIONAL PAIN; RESOLVED WITH PRN TYLENOL PER PATIENT. R GROIN DRESSING INTACT. LISINOPRIL HELD AT BEDTIME D/T MILD HYPOTENSION. UROSTOMY AND COLOSTOMY PATENT. SBA WITH WALKER; APPROX 300 FT THIS SHIFT. CHRONIC R LATERAL ANKLE PRESSURE SORE MANAGER CONTENT, PHOTO PLACED IN CHART. PIV L AC; ABX PER ORDERS. BED ALARM SET. CALL LIGHT IN REACH; ENCOURAGED TO MAKE NEEDS KNOWN.
--- NOTE | 2022-09-08 09:56 | NUR ---
DR KOCH ROUNDED THIS AM, PATEINT OKAYED TO DISCHARGE WITH HER, WAITING FOR HOSPITALIST TO ROUND, PATIENT ALERT AND ORIENTED, MAKES NEEDS KNOWN, CALL LIGHT WITH IN REACH
[2022-09-08] MEDS ORDERED: VISBIOME 112.51 EACH PO (11:11)
[2022-09-08] MEDS ORDERED: CEPH500 PO (11:12)
--- NOTE | 2022-09-08 13:35 | NUR ---
PATIENT DISCHARGED VIA W/C, STATES UNDERSTAND OF INSTRUCTIONS, MEDICATIONS, AND SUDARSHAN DRAIN DRESSING. ALERT AND ORIENTED X4, PATIENT TO DRIVE HIMSELF HOME PER DR KOCH, AND PATIENT HAS NOT HAD ANY MIND ALTERING MEDICATIONS OR NARCOTICS, PLEASANT TO CARE
== END 2022-09-08 14:30 | disposition home or self-care (01) ==
LOC: ER 12:00 → MEDS 12:01 → ER 20:55 → MEDS 22:43
PROVIDERS: Physician Assistant; ADMIT Internal Medicine
DX: L02.214 Cutaneous abscess of groin (principal); I25.10 Atherosclerotic heart disease of native coronary artery without angina pectoris; I25.2 Old myocardial infarction; I13.0 Hypertensive heart and chronic kidney disease with heart failure and stage 1 through stage 4 chronic kidney disease, or unspecified chronic kidney disease; I50.9 Heart failure, unspecified; N18.30 Chronic kidney disease, stage 3 unspecified; E78.5 Hyperlipidemia, unspecified; G47.33 Obstructive sleep apnea (adult) (pediatric); I48.92 Unspecified atrial flutter; K21.9 Gastro-esophageal reflux disease without esophagitis; Z87.891 Personal history of nicotine dependence; Z79.82 Long term (current) use of aspirin; Z79.02 Long term (current) use of antithrombotics/antiplatelets; Z85.46 Personal history of malignant neoplasm of prostate; Z95.0 Presence of cardiac pacemaker; Z95.1 Presence of aortocoronary bypass graft; Z85.048 Personal history of other malignant neoplasm of rectum, rectosigmoid junction, and anus; Z95.5 Presence of coronary angioplasty implant and graft; Z90.49 Acquired absence of other specified parts of digestive tract; Z93.3 Colostomy status; Z93.6 Other artificial openings of urinary tract status; Z90.79 Acquired absence of other genital organ(s); Z95.3 Presence of xenogenic heart valve
CPT/HCPCS: 36415; 74177; 80048; 80053; 83605; 85025; 87070; 87075; 87077; 87147; 87186; 87205; 96366; 96372; 96376; A9270; G0378; J1100; J1650; J2405; J2543; J2704; J2795; J3010; J7040; Q9967

== ENCOUNTER 2023-07-16 18:17 | Emergency (ER) | payer MEDICARE, BC ==
[~2023-07-16] VITALS: Ht 177.8 cm; Wt 83.9 kg
[~2023-07-16 18:17] MED LIST changes: +CEPH500 PO; +FURO40 PO; +ICOSAPENT ETHYL1 GM PO; +Naproxen375 MG PO; +VISBIOME 112.51 EACH PO
[2023-07-16 18:28] VITALS: BP 157/56
== END 2023-07-16 19:52 | disposition home or self-care (01) ==
LOC: ER 18:17
DX: R04.0 Epistaxis (principal); Z79.899 Other long term (current) drug therapy; Z79.82 Long term (current) use of aspirin; I12.9 Hypertensive chronic kidney disease with stage 1 through stage 4 chronic kidney disease, or unspecified chronic kidney disease; N18.30 Chronic kidney disease, stage 3 unspecified; M19.90 Unspecified osteoarthritis, unspecified site; Z87.891 Personal history of nicotine dependence
CPT/HCPCS: 30903; 99283-25

== ENCOUNTER 2024-08-05 08:31 | Day surgery (SDC) | payer MEDICARE, BC ==
[~2024-08-05] VITALS: Ht 177.8 cm; Wt 72.0 kg
[2024-08-05] VITALS (7 sets, daily range): BP systolic 113–135; BP diastolic 44–51
[~2024-08-05 08:31] MED LIST changes: +AMOX500 PO; +ISOMON20 PO; -Protonix40 MG PO; +SOD CITRATE-CIT15 ML PO; +ZYRTEC10 M2 PO
[2024-08-05] MEDS ORDERED: CeFAZolin Sodium 1000 mg Vial ONE (08:47)
[2024-08-05] MEDS ORDERED: NS 500 ML IV ONE (08:48)
[2024-08-05] MEDS ORDERED: NS 1,000 ML IV ONE (11:02)
[2024-08-05] MEDS ORDERED: NS 100 ML IV ONE (11:02)
[2024-08-05] MEDS ORDERED: Midazolam HCl 1MG / ML 2ML Vial ONE (11:02)
[2024-08-05] MEDS ORDERED: FentaNYL Citrate 50 MCG/ML 2 ML Injection ONE (11:02)
[2024-08-05] MEDS ORDERED: CeFAZolin Sodium 2,000 MG VIAL ONE (11:02)
--- NOTE | 2024-08-05 12:22 | NUR ---
PT S/p device change out back to recover room Pt alert and oriented, sitting up in bed. Ice pack applied to site, Site wnl, no swelling or oozing at this time. Pt VSS upon arrival back to unit. Pt denies any pain at this time. Food and beverages provided.
--- NOTE | 2024-08-05 13:15 | NUR ---
350cc of urine dumped from ostomy bag
--- NOTE | 2024-08-05 14:02 | NUR ---
pt assisted to get dressed. site remains unchanged, no oozing or swelling at site. pt. has ice pack in place. pt. vss remain stable. discharge instructions reviewed. pt. denies pain. no new medications, follow up apppointments discussed. pt. verbalized understanding of post care instructions. pt. iv removed, catheter intact. all belogings taken with pt to exit, [facility] pt. madina to stay with pt zackary.
== END 2024-08-05 14:53 | disposition home or self-care (01) ==
LOC: MHTC 08:31
DX: Z45.010 Encounter for checking and testing of cardiac pacemaker pulse generator [battery] (principal); Z95.2 Presence of prosthetic heart valve; I13.0 Hypertensive heart and chronic kidney disease with heart failure and stage 1 through stage 4 chronic kidney disease, or unspecified chronic kidney disease; N18.6 End stage renal disease; I50.9 Heart failure, unspecified; I35.0 Nonrheumatic aortic (valve) stenosis; K21.9 Gastro-esophageal reflux disease without esophagitis; E78.5 Hyperlipidemia, unspecified; G47.33 Obstructive sleep apnea (adult) (pediatric); Z87.891 Personal history of nicotine dependence; Z79.02 Long term (current) use of antithrombotics/antiplatelets; Z79.899 Other long term (current) drug therapy
CPT/HCPCS: 33227; 99152; 99153; C1786; J0690; J2250; J3010; J7030; J7040

== ENCOUNTER 2025-01-07 17:53 | Inpatient (IN) | payer MEDICARE, BC ==
[~2025-01-07] VITALS: Ht 177.8 cm; Wt 71.8 kg
[2025-01-07 19:16] LABS: BASOPHILS ABSOLUTE AUTO 0.02 K/mm3 (0.00-0.23); BASOPHILS PERCENT AUTO 0 % (0-2); EOSINOPHILS ABSOLUTE AUTO 0.11 K/mm3 (0.00-0.68); EOSINOPHILS PERCENT AUTO 1 % (0-6); Hematocrit 32.9 % (37.0-53.0); Hemoglobin 10.8 g/dL (13.5-17.5); IMMATURE GRAN ABSOLUTE AUTO 0.05 K/mm3 (0.00-0.10); IMMATURE GRAN PERCENT AUTO 1 % (0-1); LYMPHOCYTES ABSOLUTE AUTO 1.67 K/mm3 (0.84-5.20); LYMPHOCYTES PERCENT AUTO 16 % (21-46); MONOCYTES ABSOLUTE AUTO 1.01 K/mm3 (0.16-1.47); MONOCYTES PERCENT AUTO 9 % (4-13); Mean Corpuscular HGB 33.1 pg (26.0-34.0); Mean Corpuscular HGB Conc 32.8 g/dL (31.5-36.5); Mean Corpuscular Volume 101 fL (80-100); Mean Platelet Volume 11.3 fL (9.1-12.4); NEUTROPHILS ABSOLUTE AUTO 7.89 K/mm3 (1.96-9.15); NEUTROPHILS PERCENT AUTO 73 % (41-73); Platelet Count 234 K/mm3 (150-400); RDW Coefficient Variation 11.7 % (11.7-14.2); RDW Standard Deviation 42.2 fL (35.1-46.3); Red Blood Cell Count 3.26 M/mm3 (4.30-5.90); White Blood Cell Count 10.75 K/mm3 (4.00-11.30)
[2025-01-07 19:40] LABS: Albumin, Blood 2.9 g/dL (3.4-5.0); Albumin/Globulin Ratio 0.6 (0.8-1.8); Bilirubin, Total 0.3 mg/dL (0.1-1.0); Bun/Creatinine Ratio 31.5 (12.0-20.0); Calcium, Blood 8.9 mg/dL (8.5-10.1); Creatinine, Blood 4.32 mg/dL (0.60-1.20); Globulin, Blood 4.9 g/dL (2.2-4.0); Total Protein, Blood 7.8 g/dL (6.4-8.2)
[2025-01-07] MEDS ORDERED: FLU VACC TS2024-25(6MOS UP)/PF 45 MCG/0.5 ML SYRINGE IM SCH (20:50)
[2025-01-07] MEDS ORDERED: Ondansetron HCl 2 MG / ML 2ML Vial IV PRN (20:50)
[2025-01-07] MEDS ORDERED: Sodium Bicarb 8.4% Inj 100 MEQ in Sodium Chloride 0.45% 1,000 ML IV SCH (21:00)
[2025-01-07] MEDS ORDERED: Sodium Zirconium Cyclosilicate 10 GM Packet PO ONE (21:00)
[2025-01-07] MEDS ORDERED: Heparin Sodium,Porcine 5,000 UNIT/0.5 ML SDV SC SCH ×2 (21:00→22:20)
[2025-01-07 21:22] LABS: Bun/Creatinine Ratio 31.3 (12.0-20.0); Calcium, Blood 8.9 mg/dL (8.5-10.1); Creatinine, Blood 4.25 mg/dL (0.60-1.20); Potassium, Blood 5.4 mmol/L (3.5-5.5)
[2025-01-07 21:34] VITALS: BP 144/46
--- NOTE | 2025-01-07 22:35 | NUR ---
UPDATE: PT ARRIVED FROM ED AT 2121. BRANDON GTT INITIATED. LOKELMA GIVEN. NEW LAB RESULTS RECEIVED AND RELAYED TO DR. UP. NO ORDER CHANGES AT THIS TIME.
[2025-01-08 00:56] VITALS: BP 111/49
[2025-01-08 03:33] VITALS: BP 109/50
[2025-01-08 04:53] LABS: BASOPHILS ABSOLUTE AUTO 0.03 K/mm3 (0.00-0.23); BASOPHILS PERCENT AUTO 0 % (0-2); EOSINOPHILS ABSOLUTE AUTO 0.13 K/mm3 (0.00-0.68); EOSINOPHILS PERCENT AUTO 2 % (0-6); Hematocrit 28.6 % (37.0-53.0); Hemoglobin 9.5 g/dL (13.5-17.5); IMMATURE GRAN ABSOLUTE AUTO 0.03 K/mm3 (0.00-0.10); IMMATURE GRAN PERCENT AUTO 0 % (0-1); LYMPHOCYTES ABSOLUTE AUTO 1.75 K/mm3 (0.84-5.20); LYMPHOCYTES PERCENT AUTO 21 % (21-46); MONOCYTES ABSOLUTE AUTO 0.78 K/mm3 (0.16-1.47); MONOCYTES PERCENT AUTO 9 % (4-13); Mean Corpuscular HGB 33.3 pg (26.0-34.0); Mean Corpuscular HGB Conc 33.2 g/dL (31.5-36.5); Mean Corpuscular Volume 100 fL (80-100); Mean Platelet Volume 11.5 fL (9.1-12.4); NEUTROPHILS ABSOLUTE AUTO 5.64 K/mm3 (1.96-9.15); NEUTROPHILS PERCENT AUTO 67 % (41-73); Platelet Count 210 K/mm3 (150-400); RDW Coefficient Variation 11.5 % (11.7-14.2); RDW Standard Deviation 41.8 fL (35.1-46.3); Red Blood Cell Count 2.85 M/mm3 (4.30-5.90); White Blood Cell Count 8.36 K/mm3 (4.00-11.30)
[2025-01-08 05:19] LABS: Magnesium, Blood 1.4 mg/dL (1.6-2.4)
[2025-01-08 05:20] LABS: Albumin, Blood 2.5 g/dL (3.4-5.0); Albumin/Globulin Ratio 0.6 (0.8-1.8); Bilirubin, Total 0.4 mg/dL (0.1-1.0); Bun/Creatinine Ratio 33.7 (12.0-20.0); Calcium, Blood 8.6 mg/dL (8.5-10.1); Creatinine, Blood 3.8 mg/dL (0.60-1.20); Globulin, Blood 4.2 g/dL (2.2-4.0); Phosphorus, Blood 5.3 mg/dL (2.5-4.9); Potassium, Blood 5.1 mmol/L (3.5-5.5); Total Protein, Blood 6.7 g/dL (6.4-8.2)
[2025-01-08] MEDS ORDERED: Mag Sulfate 1 GM/D5% 100ML 100 ML IV ONE ×2 (06:30→06:45)
[2025-01-08] MEDS ORDERED: Pantoprazole Sodium 40 MG Tab PO SCH (07:30)
[2025-01-08 07:47] VITALS: BP 123/49
[2025-01-08] MEDS ORDERED: Clopidogrel Bisulfate 75 MG Tab PO SCH (09:00)
[2025-01-08] MEDS ORDERED: Lisinopril 5 MG Tab PO SCH (09:00)
[2025-01-08] MEDS ORDERED: Isosorbide Mononitrate 20 MG TAB PO SCH (09:00)
[2025-01-08] MEDS ORDERED: AmLODIPine Besylate 5 MG Tab PO SCH (09:00)
[2025-01-08] MEDS ORDERED: Furosemide 40 MG Tab PO SCH (09:00)
[2025-01-08] MEDS ORDERED: Sodium Bicarb 8.4% Inj 50 MEQ in Sodium Chloride 0.45% 1,000 ML IV SCH (09:10)
[2025-01-08] MEDS ORDERED: HYDROcodone 5-APAP 325 TAB PO PRN (10:50)
[2025-01-08 11:37] VITALS: BP 125/94
--- NOTE | 2025-01-08 17:01 | NUR ---
SHIFT NOTE: PT A/OX4 PLEASANT AND COOPERATIVE WITH CARE. HE IS ON RA WITH NO REPORTS OF SOB. IS ON TELE WITH A PACED RHYTHM AT 60. VSS. HE HAS A UROSTOMY THAT IS PATENT DRAINING YELLOW URINE. HE HAS AN ILIOSTOMY THAT HAS NOT HAD MUCH OUTPUT TODAY. PATIENT STATES IT NORMALLY ONLY NEEDS CHANGED EVERY OTHER DAY. SODIUM BICARB IS INFUSING PER EMAR. PT IS UP WITH 1P ASSIST TO THE CHAIR FOR ALL MEALS AND Q2 TURNED IN BED TO PREVENT SKIN BREAKDOWN. CARE CONTINUES
[2025-01-08 19:53] VITALS: BP 134/45
[2025-01-08] MEDS ORDERED: Heparin Sodium 5000 Units/ML 1ML MDV SC SCH (21:00)
[2025-01-08] MEDS ORDERED: Metoprolol Succinate 50 MG TABCR PO SCH (21:00)
[2025-01-08] MEDS ORDERED: Darbepoetin Alfa in Polysorbat 25 MCG/0.42 ML Syringe SC SCH (22:00)
[2025-01-08 23:11] VITALS: BP 114/48
[2025-01-09 03:20] VITALS: BP 116/49
[2025-01-09 03:59] LABS: Hemoglobin 10.1 g/dL (13.5-17.5)
[2025-01-09 04:29] LABS: Albumin, Blood 2.7 g/dL (3.4-5.0); Anion Gap 10 mmol/L (3-11); Blood Urea Nitrogen 104 mg/dL (8-24); CO2, Blood 25 mmol/L (21-32); Calcium, Blood 8.9 mg/dL (8.5-10.1); Chloride, Blood 109 mmol/L (98-108); Creatinine, Blood 3.25 mg/dL (0.60-1.20); Glomerular Filtration Rate 18 (60-); Glucose, Blood 99 mg/dL (70-99); Magnesium, Blood 1.5 mg/dL (1.6-2.4); Phosphorus, Blood 4.2 mg/dL (2.5-4.9); Potassium, Blood 5.1 mmol/L (3.5-5.5); Sodium, Blood 139 mmol/L (136-145)
--- NOTE | 2025-01-09 05:33 | NUR ---
SHIFT SUMMARY PT HAD AN OVERALL UNEVENTFUL NIGHT. UROSTOMY OUTPUT ADEQUATE, CLEAR YELLOW. CREATININE TRENDING DOWN, NOW AT 3.25. POTASSIUM LEVEL HOLDING 5.1. MAG 1.5. REPLACEMENT ORDERS ENTERED BY DR. UP THIS AM.
[2025-01-09] MEDS ORDERED: Mag Sulfate 1 GM/D5% 100ML 100 ML IV ONE (06:00)
[2025-01-09 07:46] VITALS: BP 111/39
[2025-01-09 08:05] VITALS: BP 112/46
[2025-01-09] MEDS ORDERED: Sodium Zirconium Cyclosilicate 10 GM Packet PO SCH (10:00)
[2025-01-09 10:03] VITALS: BP 119/46
--- NOTE | 2025-01-09 10:41 | NUR ---
AM NOTE: PATIENT ALERT AND ORIENTED. USING CALL LIGHT FOR NEEDS. UP TO RECLINER FOR BREAKFAST WITH ONE PERSON AND FWW. DENIES NUMBNESS/TINGLING. ON ROOM AIR SATING ABOVE 95%. DENIES SOB. LUNG SOUNDS CLEAR AND DIM IN BASES. EVEN AND UNLABORED RESPIRATIONS. TELE SHOWING SR PACED WITH HR 60'S. DENIES CHEST PAIN/PRESSURE/PALPITATIONS. SBP 110'S. IV'S SALINE LOCKED. MAG INFUSED THIS AM. NO EDEMA NOTED. BOWEL TONES PRESENT. ILEOSTOMY AND UROSTOMY CHANGED THIS AM. TOLERATING PO DIET. DENIES ABDOMINAL PAIN/NAUSEA. COMPLAINS OF 3/10 BACK PAIN THIS AM, MEDICATED PER EMAR. SKIN C/D/I. DENIES NEEDS AT THIS TIME, BACK IN BED RESTING. CALL LIGHT IN REACH.
[2025-01-09 11:15] VITALS: BP 111/38
[2025-01-09] MEDS ORDERED: Norco 5-325 Ta1 EACH PO (13:36)
[2025-01-09] MEDS ORDERED: LOKELMA10 GM PO (13:41)
--- NOTE | 2025-01-09 15:53 | NUR ---
DISCHARGE: NO ACUTE CHANGES. VITAL SIGNS STABLE. PATIENT DAUGHTER XIAO IN TO HEAVY EQUIPMENT OPERATOR. THIS RN REVIEWED DISCHARGE INSTRUCTIONS AND EDUCATION. MEDICATIONS FAXED TO [facility]. IV REMOVED WNL. PATIENT LEFT UNIT WITH ALL PERSONAL BELONGINGS AND DISCHARGE PACKET VIA WHEELCHAIR.
== END 2025-01-09 15:00 | disposition home or self-care (01) | DRG 683 ==
LOC: ER 17:53 → PCU 20:01
PROVIDERS: Family Medicine; Internal Medicine Nephrology; ADMIT Internal Medicine
DX: N17.9 Acute kidney failure, unspecified (principal); C18.9 Malignant neoplasm of colon, unspecified; E87.20 Acidosis, unspecified; I44.2 Atrioventricular block, complete; E87.5 Hyperkalemia; N18.5 Chronic kidney disease, stage 5; N25.81 Secondary hyperparathyroidism of renal origin; I12.9 Hypertensive chronic kidney disease with stage 1 through stage 4 chronic kidney disease, or unspecified chronic kidney disease; G31.9 Degenerative disease of nervous system, unspecified; I70.90 Unspecified atherosclerosis; G89.29 Other chronic pain; G47.33 Obstructive sleep apnea (adult) (pediatric); D63.1 Anemia in chronic kidney disease; E88.09 Other disorders of plasma-protein metabolism, not elsewhere classified; E83.39 Other disorders of phosphorus metabolism; E78.00 Pure hypercholesterolemia, unspecified; R94.5 Abnormal results of liver function studies; C61 Malignant neoplasm of prostate; D51.8 Other vitamin B12 deficiency anemias; M85.80 Other specified disorders of bone density and structure, unspecified site; R76.9 Abnormal immunological finding in serum, unspecified; Z87.81 Personal history of (healed) traumatic fracture; Z79.811 Long term (current) use of aromatase inhibitors; Z79.899 Other long term (current) drug therapy; Z85.46 Personal history of malignant neoplasm of prostate; Z93.3 Colostomy status; Z98.890 Other specified postprocedural states; Z87.19 Personal history of other diseases of the digestive system; Z95.1 Presence of aortocoronary bypass graft; Z87.891 Personal history of nicotine dependence; Z95.0 Presence of cardiac pacemaker; Z85.038 Personal history of other malignant neoplasm of large intestine; Z90.79 Acquired absence of other genital organ(s)
CPT/HCPCS: 36415; 76770; 80048; 80053; 80069; 82607; 82947; 83735; 84100; 84153; 85014; 85018; 85025; 93005; 93010; 99285-25; A9270; J0881; J1644; J3475

== ENCOUNTER 2025-02-11 06:07 | Inpatient (IN) | payer MEDICARE, BC ==
[~2025-02-11] VITALS: Ht 177.8 cm; Wt 73.0 kg
[~2025-02-11 06:07] MED LIST changes: +LOKELMA10 GM PO; +Norco 5-325 Ta1 EACH PO
[2025-02-11] MEDS ORDERED: Morphine Sulfate 4 MG/1 ML Injection IV ONE ×2 (06:30→09:45)
[2025-02-11 06:48] LABS: BASOPHILS ABSOLUTE AUTO 0.06 K/mm3 (0.00-0.23); BASOPHILS PERCENT AUTO 0 % (0-2); EOSINOPHILS ABSOLUTE AUTO 0.14 K/mm3 (0.00-0.68); EOSINOPHILS PERCENT AUTO 1 % (0-6); Hemoglobin 8.5 g/dL (13.5-17.5); IMMATURE GRAN ABSOLUTE AUTO 0.51 K/mm3 (0.00-0.10); IMMATURE GRAN PERCENT AUTO 2 % (0-1); LYMPHOCYTES ABSOLUTE AUTO 1.33 K/mm3 (0.84-5.20); LYMPHOCYTES PERCENT AUTO 5 % (21-46); MONOCYTES PERCENT AUTO 8 % (4-13); Mean Corpuscular HGB 32.9 pg (26.0-34.0); Mean Corpuscular HGB Conc 32.7 g/dL (31.5-36.5); Mean Corpuscular Volume 101 fL (80-100); Mean Platelet Volume 10.8 fL (9.1-12.4); NEUTROPHILS ABSOLUTE AUTO 23.81 K/mm3 (1.96-9.15); NEUTROPHILS PERCENT AUTO 85 % (41-73); Platelet Count 322 K/mm3 (150-400); RDW Coefficient Variation 13.9 % (11.7-14.2); RDW Standard Deviation 50.3 fL (35.1-46.3); Red Blood Cell Count 2.58 M/mm3 (4.30-5.90); White Blood Cell Count 27.95 K/mm3 (4.00-11.30)
[2025-02-11 07:17] LABS: Albumin/Globulin Ratio 0.4 (0.8-1.8); Bilirubin, Total 0.5 mg/dL (0.1-1.0); Bun/Creatinine Ratio 27.8 (12.0-20.0); Calcium, Blood 8.4 mg/dL (8.5-10.1); Creatinine, Blood 1.94 mg/dL (0.60-1.20); Globulin, Blood 4.8 g/dL (2.2-4.0); Magnesium, Blood 1.3 mg/dL (1.6-2.4); Potassium, Blood 4.8 mmol/L (3.5-5.5); Total Protein, Blood 6.8 g/dL (6.4-8.2)
[2025-02-11] MEDS ORDERED: Vancomycin HCL 2,000 MG in NS 520 ML IV ONE (08:25)
[2025-02-11] MEDS ORDERED: Piperacillin/Tazobactam Sod 4.5 GM in NS 100 ML IV ONE ×2 (08:25→14:50)
[2025-02-11 09:09] LABS: Source, Urine Urostomy Bag
[2025-02-11] MEDS ORDERED: NS 1,000 ML IV SCH ×2 (09:25→23:00)
[2025-02-11 09:27] LABS: Appearance, Urine Hazy (Clear); Bilirubin, Urine Neg (Neg); Blood, Urine 2+ (Neg); Color, Urine Yellow (P-Yellow); Glucose Qualitative, Urine Neg (Neg); Ketones, Urine Neg (Neg); Leukocyte Esterase, Urine 3+ (Neg); Nitrite, Urine Neg (Neg); Protein, Urine 2+ (Neg); Urobilinogen, Urine NORM (Normal)
[2025-02-11 09:36] LABS: Amorphous Light (0-Heavy); Bacteria Many /hpf; Squamous Epithelial Cells Not Seen /hpf (Few); White Blood Cells, Urine 50-100 /hpf (0-5)
[2025-02-11] MEDS ORDERED: Lactated Ringer's 1,000 ML IV ONE (12:55)
[2025-02-11] MEDS ORDERED: Lactated Ringer's 500 ML IV ONE (12:55)
[2025-02-11] MEDS ORDERED: Morphine Sulfate 4 MG/1 ML Injection IV PRN (14:00)
[2025-02-11] MEDS ORDERED: Vancomycin HCL 1,500 MG in NS 250 ML IV ONE (17:00)
[2025-02-11 21:25] LABS: Influenza A, PCR NEGATIVE (NEGATIVE); Influenza B, PCR NEGATIVE (NEGATIVE); Resp Syncytial Virus, PCR NEGATIVE (NEGATIVE); SARS-Cov-2 (COVID-19) PCR, MMC NEGATIVE (NEGATIVE)
[2025-02-11] MEDS ORDERED: FentaNYL Citrate 50 MCG/ML 2 ML Injection IV PRN (23:00)
[2025-02-11] MEDS ORDERED: Ondansetron HCl 2 MG / ML 2ML Vial IV PRN (23:00)
[2025-02-11] MEDS ORDERED: Piperacillin/Tazobactam Sod 4.5 GM in NS 100 ML IV SCH (23:32)
[2025-02-11 23:52] VITALS: BP 135/41
--- NOTE | 2025-02-12 02:04 | NUR ---
ADMIT NOTE 89 YR OLD MALE ADMITED TO FLOOR FROM THE ED WITH DX OF ABSCESS OF PELVIS MUSCLE OF RIGHT SIDE. ALERT AND ORIENTED. HAS UROSTOMY AD COLOSTOMY. COOPERATIVE. REPORTEDLY PLANS TO SEND TO [facility] WHEN BED AVAILABLE. ORIENTED TO USE OF CALL LIGHT AND BED CONTROL. HOB ELEVATED FOR COMFORT. CALL LIGHT IN REACH. IV DOESNT FLUSH, ANOTHER IV PLACED. IVF OF NS AND IV ANTIBIOTICS INFUSING - SEE MAR FOR DETAILS.
[2025-02-12] MEDS ORDERED: Mag Sulfate 1 GM/D5% 100ML 100 ML IV STA (02:12)
[2025-02-12] MEDS ORDERED: Albumin (Human) 25gm/100ml 100 ML IV ONE (02:15)
[2025-02-12 03:58] VITALS: BP 135/41
--- NOTE | 2025-02-12 04:07 | NUR ---
DR MCNALLY IN TO SEE AND ASSESS PT. ACKNOWEDGED ALBUMIN INFUSING.
--- NOTE | 2025-02-12 04:08 | NUR ---
APPLIED PSYCHOLOGY TEACHER SUMMARY VSS. WAS ADMITTED EARLIER IN THE SHIFT WITH DX OF ABSCESS OF RIGHT PELVIC MUSCLE. 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 MED TELE -PACED IN THE 60'S. ON BEDREST TONIGHT. ALERT AND ORIENTED X 4. IVF OF NS INFUSING AT 75 ML/HR, ALSO RECEIVING ABX, SEE MAR FOR DETAILS. PT WAITING FOR POSSIBLE TRANSFER TO [facility] WHEN BED AVAILABLE. HAS BEEN RESTING QUIELTY WITH INTERMITTENT INTERRUPTIONS FOR ASSESSMENTS, ETC. RAILS UP X 2, CALL LIGHT IN REACH AND BED IN LOW POSITION FOR SAFETY. WILL CONTINUE TO MONITOR
[2025-02-12 04:46] LABS: BASOPHILS PERCENT AUTO 0 % (0-2); EOSINOPHILS ABSOLUTE AUTO 0.07 K/mm3 (0.00-0.68); EOSINOPHILS PERCENT AUTO 0 % (0-6); Hematocrit 28.1 % (37.0-53.0); Hemoglobin 8.9 g/dL (13.5-17.5); IMMATURE GRAN ABSOLUTE AUTO 0.67 K/mm3 (0.00-0.10); IMMATURE GRAN PERCENT AUTO 2 % (0-1); LYMPHOCYTES ABSOLUTE AUTO 1.21 K/mm3 (0.84-5.20); LYMPHOCYTES PERCENT AUTO 4 % (21-46); MONOCYTES ABSOLUTE AUTO 2.18 K/mm3 (0.16-1.47); MONOCYTES PERCENT AUTO 7 % (4-13); Mean Corpuscular HGB 32.8 pg (26.0-34.0); Mean Corpuscular HGB Conc 31.7 g/dL (31.5-36.5); Mean Corpuscular Volume 104 fL (80-100); Mean Platelet Volume 10.5 fL (9.1-12.4); NEUTROPHILS ABSOLUTE AUTO 26.97 K/mm3 (1.96-9.15); NEUTROPHILS PERCENT AUTO 87 % (41-73); Platelet Count 341 K/mm3 (150-400); RDW Coefficient Variation 14.3 % (11.7-14.2); RDW Standard Deviation 53.4 fL (35.1-46.3); Red Blood Cell Count 2.71 M/mm3 (4.30-5.90)
[2025-02-12 05:10] LABS: Albumin, Blood 1.9 g/dL (3.4-5.0); Albumin/Globulin Ratio 0.4 (0.8-1.8); Bilirubin, Total 0.8 mg/dL (0.1-1.0); Bun/Creatinine Ratio 25.3 (12.0-20.0); Calcium, Blood 8.5 mg/dL (8.5-10.1); Creatinine, Blood 1.66 mg/dL (0.60-1.20); Potassium, Blood 4.2 mmol/L (3.5-5.5); Total Protein, Blood 6.9 g/dL (6.4-8.2)
[2025-02-12] MEDS ORDERED: HYDROcodone 5-APAP 325 TAB PO PRN (06:25)
[2025-02-12] MEDS ORDERED: Pantoprazole Sodium 40 MG Tab PO SCH (07:30)
[2025-02-12 08:08] VITALS: BP 125/40
--- NOTE | 2025-02-12 08:24 | NUR ---
MD CALL CLIENT C/O NON RADIATING CHEST PAIN, APPROX 02/17. PAIN STARTED IMMEDIATELY AFTER TAKING A DRINK OF WATER. PAIN IS NOT WORSENED WITH DEEP BREATH OR PALPATION. CLIENT STATED THAT HE EXPERIENCES THIS PAIN OFTER AFTER TAKING DRINK OF COLD WATER. CLENT ALSO DESAT TO 87 DURING THIS EVENT. OXYGEN STARTED AT 2L. SAT INCREASED TO 91. DR. RODRIGUEZ ORDERED OXYGEN 2L, TITRATE TO ABOVE 90. 2 VIEW CHEST X-RAY. NPO, WITH SPEACH THERAPY EVAL TO R/O ASPIRATION RISK.
[2025-02-12] MEDS ORDERED: ISOSORBIDE MONO60 MG PO (08:40)
[2025-02-12] MEDS ORDERED: Isosorbide Mononitrate 60 MG TABCR PO SCH (09:00)
[2025-02-12] MEDS ORDERED: Clopidogrel Bisulfate 75 MG Tab PO SCH (09:00)
[2025-02-12] MEDS ORDERED: AmLODIPine Besylate 5 MG Tab PO SCH (09:00)
[2025-02-12] MEDS ORDERED: Furosemide 40 MG Tab PO SCH (09:00)
[2025-02-12] MEDS ORDERED: Cholestyramine 4 GM PKT PO SCH (09:00)
[2025-02-12 11:42] VITALS: BP 134/42
[2025-02-12 12:22] VITALS: BP 132/39
--- NOTE | 2025-02-12 12:35 | NUR ---
MD CALL CALLED DR ROY TO UPDATE HIM THAT THE CLIENT WAS ADMITTED TO THE MEDICAL FLOOR. ALSO LET HIM KNOW THAT THE CLIENT IS STILL WAITING FOR BED PLACEMENT AT [facility]. INOFMED PROVIDER THAT THE ABCESS IN TE CLIENTS RIGHT INGUANAL AREA HAS BEGAN TO DRAIN AND A WOUND CULTURE HAS BEEN OBTAINED.
[2025-02-12 16:24] VITALS: BP 107/35
--- NOTE | 2025-02-12 16:57 | NUR ---
VSS. ADMIT DX = ABCESS OF RIGHT PELVIC MUSCLE. ABCESS BEGAN DRAINING, LARGE AMOUNT OF FOUL SMELLING PURULENTDRAINAGE EXPRESSED. WOUND CULTURE OBTAINED. DR BASSETT CONTACTED AND HE ASSESSED THE WOUND AND PLACED GAUZE OVER THE AFFECTED AREA. REPLACE PRN. CLIENT ALSO DESAT EARLT IN SHIFT AFTER DRINKING WATER. DR RODRIGUEZ CONTACTED WITH ORDERS TO PLACE CLIENT NPO PENDING SWALLOW EVAL, 2 VIEW CXR. SWALLOW STUDY RESULTED IN DIET BEING CHANGED TO MINCED AND THIN LIQUIDS. MEDS TO BE CRUSHED AND GIVEN WITH APPLESAUCE. UROSTOMY & COLOSTOMY SITES ARE CLEAN AND DRY AT THIS TIME. TELE PACED BETEWEEN 59 & 62 THIS SHIFT. A&O X 4. IVF OF NS INFUSING AT 75ML/HR. RECIEVED ABX. SEE MAR FOR DETAILS. RECIEVED MORPHINE X 2 FOR PAIN DURING REPOSITING AND MD ASSESSMENT. TOLERATED WELL WITH GOOD RESULTS.FAMILY VISITED. RESTED QUIETLY BETWEEN VISITS AND ASSESSMENTS.RAILS UP X 2. CALL LIGHT WITHIN REACH. BED IN LOW POSITION FOR SAFETY.
[2025-02-12 19:58] VITALS: BP 107/35
[2025-02-12] MEDS ORDERED: Metoprolol Succinate 50 MG TABCR PO SCH (21:00)
[2025-02-12] MEDS ORDERED: Atorvastatin 40 MG Tab PO SCH (21:00)
--- NOTE | 2025-02-12 21:34 | NUR ---
ROOM OBTAINED IN [facility], AMBULANCE CREW HERE, MORPHINE 4 MG IV ADMIN. VOICED MED EFFECTIVE. ALL PAPERWORK DONE, PT TRANSFERRED TO [facility] WITH [facility] STEWARDESS AND TAKEN OUT TO AMBULANCE TO TAKE TO [place]. VSS. CHARGE NURSE AWARE. CALL PLACED TO [facility] NURSE/STAFF OF 14C ROOM 12.
[2025-02-13] MEDS ORDERED: Sodium Zirconium Cyclosilicate 10 GM Packet PO SCH (09:00)
== END 2025-02-12 21:30 | disposition short-term general hospital (02) | DRG 372 ==
LOC: ER 06:07 → ERHOLD 06:08 → MEDS 22:57 → ERHOLD 22:57 → MEDS 23:48
PROVIDERS: Emergency Medicine; ADMIT Internal Medicine
DX: K65.1 Peritoneal abscess (principal); M60.08 Infective myositis, other site; I12.9 Hypertensive chronic kidney disease with stage 1 through stage 4 chronic kidney disease, or unspecified chronic kidney disease; N18.30 Chronic kidney disease, stage 3 unspecified; G47.30 Sleep apnea, unspecified; Z79.02 Long term (current) use of antithrombotics/antiplatelets; Z79.899 Other long term (current) drug therapy; Z79.891 Long term (current) use of opiate analgesic; Z95.5 Presence of coronary angioplasty implant and graft; D63.1 Anemia in chronic kidney disease; E88.09 Other disorders of plasma-protein metabolism, not elsewhere classified; Z85.038 Personal history of other malignant neoplasm of large intestine; Z85.46 Personal history of malignant neoplasm of prostate; Z93.3 Colostomy status; Z90.79 Acquired absence of other genital organ(s); Z98.890 Other specified postprocedural states; Z95.0 Presence of cardiac pacemaker; Z95.2 Presence of prosthetic heart valve; Z95.1 Presence of aortocoronary bypass graft; Z90.49 Acquired absence of other specified parts of digestive tract; Z87.891 Personal history of nicotine dependence
CPT/HCPCS: 0241U; 36415; 71046; 72193; 74176; 80053; 81001; 83605; 83735; 83880; 84484; 85025; 87040; 87070; 87075; 87076; 87077; 87086; 87186; 87205; 92610; 93005; 93010; 96361; 96365-59; 96366; 96367; 96375; 96376; 99285-25; A9270; G0378; J2270; J2543; J3370; J3475; J7030; J7040; J7050; J7120; P9047; Q9967

== ENCOUNTER 2025-05-02 16:04 | Inpatient (IN) | payer MEDICARE, BC ==
[~2025-05-02] VITALS: Ht 180.3 cm; Wt 68.2 kg
[~2025-05-02 16:04] MED LIST changes: +ISOSORBIDE MONO60 MG PO
[2025-05-02 16:28] LABS: BASOPHILS ABSOLUTE AUTO 0.03 K/mm3 (0.00-0.23); BASOPHILS PERCENT AUTO 0 % (0-2); EOSINOPHILS ABSOLUTE AUTO 0.05 K/mm3 (0.00-0.68); EOSINOPHILS PERCENT AUTO 0 % (0-6); Hematocrit 36.4 % (37.0-53.0); Hemoglobin 12.1 g/dL (13.5-17.5); IMMATURE GRAN ABSOLUTE AUTO 0.06 K/mm3 (0.00-0.10); IMMATURE GRAN PERCENT AUTO 0 % (0-1); LYMPHOCYTES PERCENT AUTO 11 % (21-46); MONOCYTES ABSOLUTE AUTO 1.12 K/mm3 (0.16-1.47); MONOCYTES PERCENT AUTO 8 % (4-13); Mean Corpuscular HGB 33.4 pg (26.0-34.0); Mean Corpuscular HGB Conc 33.2 g/dL (31.5-36.5); Mean Corpuscular Volume 101 fL (80-100); NEUTROPHILS ABSOLUTE AUTO 11.69 K/mm3 (1.96-9.15); NEUTROPHILS PERCENT AUTO 80 % (41-73); Platelet Count 236 K/mm3 (150-400); RDW Coefficient Variation 13.5 % (11.7-14.2); RDW Standard Deviation 50.2 fL (35.1-46.3); Red Blood Cell Count 3.62 M/mm3 (4.30-5.90); White Blood Cell Count 14.55 K/mm3 (4.00-11.30)
[2025-05-02] MEDS ORDERED: Isosorbide Mononitrate 60 MG TABCR PO ONE (16:40)
[2025-05-02] MEDS ORDERED: Metoprolol Succinate 50 MG TABCR PO ONE (16:40)
[2025-05-02 18:55] LABS: Albumin, Blood 3.3 g/dL (3.4-5.0); Albumin/Globulin Ratio 0.6 (0.8-1.8); Bilirubin, Total 0.3 mg/dL (0.1-1.0); Bun/Creatinine Ratio 31.8 (12.0-20.0); Calcium, Blood 9.6 mg/dL (8.5-10.1); Creatinine, Blood 3.68 mg/dL (0.60-1.20); Globulin, Blood 5.7 g/dL (2.2-4.0); Potassium, Blood 6.4 mmol/L (3.5-5.5)
[2025-05-02] MEDS ORDERED: Insulin Regular 100 Unit/ML 1ML Dose IV ONE (19:00)
[2025-05-02] MEDS ORDERED: NS 1,000 ML IV SCH (19:00)
[2025-05-02] MEDS ORDERED: Dextrose 50% 50 ML Syringe IV ONE (19:00)
[2025-05-02] MEDS ORDERED: Sodium Zirconium Cyclosilicate 10 GM Packet PO ONE (19:00)
[2025-05-02 21:38] VITALS: BP 119/49
[2025-05-02] MEDS ORDERED: Sodium Bicarb 8.4% Inj 100 MEQ in Sodium Chloride 0.45% 1,000 ML IV SCH (21:50)
[2025-05-02] MEDS ORDERED: FentaNYL Citrate 50 MCG/ML 2 ML Injection IV PRN (22:00)
[2025-05-02] MEDS ORDERED: Ondansetron HCl 2 MG / ML 2ML Vial IV PRN (22:00)
[2025-05-02 22:34] LABS: Bun/Creatinine Ratio 31.5 (12.0-20.0); Calcium, Blood 8.8 mg/dL (8.5-10.1); Creatinine, Blood 3.33 mg/dL (0.60-1.20); Potassium, Blood 5.7 mmol/L (3.5-5.5)
[2025-05-02] MEDS ORDERED: CALCIUM GLUC IN NACL, ISO-OSM 50 ML IV ONE (22:35)
[2025-05-02] MEDS ORDERED: Heparin Sodium,Porcine 5,000 UNIT/0.5 ML SDV SC SCH (23:00)
[2025-05-03 03:46] VITALS: BP 108/47
[2025-05-03 05:38] LABS: BASOPHILS ABSOLUTE AUTO 0.04 K/mm3 (0.00-0.23); BASOPHILS PERCENT AUTO 0 % (0-2); EOSINOPHILS ABSOLUTE AUTO 0.12 K/mm3 (0.00-0.68); EOSINOPHILS PERCENT AUTO 1 % (0-6); Hematocrit 31.9 % (37.0-53.0); Hemoglobin 10.6 g/dL (13.5-17.5); IMMATURE GRAN ABSOLUTE AUTO 0.05 K/mm3 (0.00-0.10); IMMATURE GRAN PERCENT AUTO 0 % (0-1); LYMPHOCYTES ABSOLUTE AUTO 1.38 K/mm3 (0.84-5.20); LYMPHOCYTES PERCENT AUTO 12 % (21-46); MONOCYTES ABSOLUTE AUTO 0.88 K/mm3 (0.16-1.47); MONOCYTES PERCENT AUTO 7 % (4-13); Mean Corpuscular HGB 32.4 pg (26.0-34.0); Mean Corpuscular HGB Conc 33.2 g/dL (31.5-36.5); Mean Corpuscular Volume 98 fL (80-100); NEUTROPHILS ABSOLUTE AUTO 9.43 K/mm3 (1.96-9.15); NEUTROPHILS PERCENT AUTO 79 % (41-73); RDW Coefficient Variation 13.1 % (11.7-14.2); RDW Standard Deviation 46.4 fL (35.1-46.3); Red Blood Cell Count 3.27 M/mm3 (4.30-5.90)
[2025-05-03 05:59] LABS: Albumin, Blood 2.7 g/dL (3.4-5.0); Albumin/Globulin Ratio 0.6 (0.8-1.8); Bilirubin, Total 0.4 mg/dL (0.1-1.0); Bun/Creatinine Ratio 33.3 (12.0-20.0); Calcium, Blood 9.4 mg/dL (8.5-10.1); Creatinine, Blood 3.12 mg/dL (0.60-1.20); Globulin, Blood 4.9 g/dL (2.2-4.0); Total Protein, Blood 7.6 g/dL (6.4-8.2)
[2025-05-03 07:29] VITALS: BP 129/47
--- NOTE | 2025-05-03 07:29 | NUR ---
SHIFT SUMMARY; AFTER ADMIT, PATIENT WAS GIVEN FENTANYL, THIS HELPED WITH HIS BACK PAIN IV FLUIDS INFUSING, TELE V PACED 67. REMAINED IN BED TONIGHT.HEATING PAD TO BACK.
[2025-05-03 07:30] LABS: Albumin, Blood 2.7 g/dL (3.4-5.0); Albumin/Globulin Ratio 0.5 (0.8-1.8); Bilirubin, Total 0.4 mg/dL (0.1-1.0); Bun/Creatinine Ratio 32.1 (12.0-20.0); Creatinine, Blood 3.08 mg/dL (0.60-1.20); Potassium, Blood 5.8 mmol/L (3.5-5.5); Total Protein, Blood 7.7 g/dL (6.4-8.2)
[2025-05-03] MEDS ORDERED: Sodium Bicarb 8.4% Inj 150 MEQ in Dextrose 5% 1,000 ML IV SCH (08:00)
[2025-05-03] MEDS ORDERED: Furosemide 40 MG Tab PO SCH (09:00)
[2025-05-03] MEDS ORDERED: Isosorbide Mononitrate 60 MG TABCR PO SCH (09:00)
[2025-05-03] MEDS ORDERED: AmLODIPine Besylate 5 MG Tab PO SCH (09:00)
[2025-05-03] MEDS ORDERED: Sodium Zirconium Cyclosilicate 10 GM Packet PO SCH ×2 (09:00)
[2025-05-03] MEDS ORDERED: Cholestyramine 4 GM PKT PO SCH (09:00)
[2025-05-03] MEDS ORDERED: Clopidogrel Bisulfate 75 MG Tab PO SCH (09:00)
[2025-05-03 15:19] VITALS: BP 121/46
[2025-05-03] MEDS ORDERED: Pantoprazole Sodium 40 MG Tab PO SCH (16:30)
[2025-05-03 16:42] LABS: Source, Urine Urostomy Bag
[2025-05-03 16:49] LABS: Appearance, Urine Clear (Clear); Bilirubin, Urine Neg (Neg); Blood, Urine Neg (Neg); Glucose Qualitative, Urine Neg (Neg); Ketones, Urine Neg (Neg); Leukocyte Esterase, Urine 1+ (Neg); Nitrite, Urine Neg (Neg); Protein, Urine 2+ (Neg); Specific Gravity, Urine 1.015 (1.003-1.022); Urobilinogen, Urine NORM (Normal)
[2025-05-03 17:20] LABS: Color, Urine Pale Yellow (P-Yellow)
[2025-05-03 17:21] LABS: Red Blood Cells, Urine 0-2 /hpf (0-2); White Blood Cells, Urine 25-50 /hpf (0-5)
[2025-05-03 17:22] LABS: Bacteria Mod /hpf; Squamous Epithelial Cells Not Seen /hpf (Few)
--- NOTE | 2025-05-03 17:27 | NUR ---
SHIFT SUMMARY PT AOX4, SBA WITH THE FWW. UROSTOMY AND OSTOMY PATENT AND DRAINING. BOTH BAGS CHANGED THIS SHIFT. PT HAS HAD NO ACUTE COMPLAINTS. CHRONIC PAIN MANAGED WITH REPOSITIONING AND REST. FAMILY AT THE BS TODAY. REPOSITIONED THROUGHOUT THE SHIFT. NO EVENTS PER TELE. DR. PEREZ CONSULTED THIS SHIFT VIA [email or web address]. CALL LIGHT WITHIN REACH, BED LOCKED AND IN THE LOWEST POSITION. WILL REPORT TO ONCOMING NURSE.
[2025-05-03 20:02] VITALS: BP 123/40
[2025-05-03] MEDS ORDERED: Metoprolol Succinate 50 MG TABCR PO SCH (21:00)
[2025-05-04] MEDS ORDERED: CefTRIAXone Sodium 1,000 MG in NS 100 ML IV SCH (01:00)
--- NOTE | 2025-05-04 04:36 | NUR ---
SHIFT SUMMARY; SLEPT IN LONG INTERVALS, IV BICARB INFUSING ALL NIGHT. ROCEPHIN STARTED AT 0100. VSS AND TELE V PACED AT 67.
[2025-05-04 04:56] VITALS: BP 120/49
[2025-05-04 06:00] LABS: BASOPHILS ABSOLUTE AUTO 0.02 K/mm3 (0.00-0.23); BASOPHILS PERCENT AUTO 0 % (0-2); EOSINOPHILS PERCENT AUTO 2 % (0-6); Hematocrit 29.4 % (37.0-53.0); IMMATURE GRAN ABSOLUTE AUTO 0.04 K/mm3 (0.00-0.10); IMMATURE GRAN PERCENT AUTO 0 % (0-1); LYMPHOCYTES ABSOLUTE AUTO 1.37 K/mm3 (0.84-5.20); LYMPHOCYTES PERCENT AUTO 11 % (21-46); MONOCYTES ABSOLUTE AUTO 1.35 K/mm3 (0.16-1.47); MONOCYTES PERCENT AUTO 10 % (4-13); Mean Corpuscular HGB 32.9 pg (26.0-34.0); Mean Corpuscular Volume 97 fL (80-100); Mean Platelet Volume 11.4 fL (9.1-12.4); NEUTROPHILS PERCENT AUTO 77 % (41-73); Platelet Count 174 K/mm3 (150-400); RDW Coefficient Variation 13.2 % (11.7-14.2); RDW Standard Deviation 46.7 fL (35.1-46.3); Red Blood Cell Count 3.04 M/mm3 (4.30-5.90); White Blood Cell Count 12.98 K/mm3 (4.00-11.30)
[2025-05-04 06:41] LABS: Alanine Aminotransfer (ALT/SGP 11 U/L (12-78); Albumin, Blood 2.4 g/dL (3.4-5.0); Albumin/Globulin Ratio 0.5 (0.8-1.8); Alk Phos 126 U/L (50-136); Anion Gap 9 mmol/L (3-11); Aspartate Aminotrans (AST/SGOT 14 U/L (12-37); Bilirubin, Direct <0.1 mg/dL (0.0-0.3); Bilirubin, Indirect Unable to Calculate mg/dL (0.1-0.7); Bilirubin, Total 0.2 mg/dL (0.1-1.0); Blood Urea Nitrogen 76 mg/dL (8-24); Bun/Creatinine Ratio 32.8 (12.0-20.0); CO2, Blood 26 mmol/L (21-32); Chloride, Blood 107 mmol/L (98-108); Creatinine, Blood 2.32 mg/dL (0.60-1.20); Globulin, Blood 4.8 g/dL (2.2-4.0); Glomerular Filtration Rate 27 (60-); Glucose, Blood 96 mg/dL (70-99); Phosphorus, Blood 3.2 mg/dL (2.5-4.9); Potassium, Blood 4.3 mmol/L (3.5-5.5); Sodium, Blood 138 mmol/L (136-145); Total Protein, Blood 7.2 g/dL (6.4-8.2)
[2025-05-04 07:43] VITALS: BP 128/43
--- NOTE | 2025-05-04 10:53 | NUR ---
POLST ON FILE REFLECTING FULL CODE STATUS. PRINTED POLST AND REVIEWED WITH PATIENT. GILA EXPRESSED THAT THIS POLST STILL ACCURATE TO HIS WISHES. WE DISCUSSED THE REPROCUSSIONS OF CPR AND INTUBATION. HE REPORTED THAT HIS WOULD WANT HIM TO TRY. HE HAD AN EXTENSIVE CONVERSATION WITH A QUALITY TESTER WHO EXPLAINED CPR AND ENCOURAGED HIM TO BE A FULL CODE.
[2025-05-04 11:31] VITALS: BP 133/41
[2025-05-04 15:36] VITALS: BP 132/48
--- NOTE | 2025-05-04 17:38 | NUR ---
SHIFT SUMMARY: PT IS AOX4. PT IS A SBA WITH THE FWW. URIOSTOMY IS DRAINING AND OSTOMY HAS OUTPUT. PT HAD A TELE HEALTH VISIT THIS MORNING. NO ACUTE CHANGES. BED IN THE LOWEST POSITION AND CALL LIGHT IN REACH. MEDICATED PER EMAR. PT HAS BICARBONATE RUNNING CONTINUOSLY AT BEDSIDE.
[2025-05-04 19:29] VITALS: BP 128/41
[2025-05-04 23:39] VITALS: BP 128/50
[2025-05-05 03:48] VITALS: BP 138/46
--- NOTE | 2025-05-05 04:47 | NUR ---
SHIFT SUMMARY PATIENT A/O X4- VITAL SIGNS REMAINED AT BASELINE. NO REPORT OF SOB, CHEST PAIN/PRESSURE. UROSTOMY AND COLOSTOMY DRAINING. NO REPORT OF PAIN. SODIUM BICARB INFUSING THROUGHOUT THE NIGHT. CPAP USED AT [facility]. NO ACUTE CHANGES THROUGHOUT THE SHIFT. CALL LIGHT IN REACH, BED IN LOWEST POSITION. WILL REPORT TO ONCOMING RN.
[2025-05-05 07:43] VITALS: BP 140/51
[2025-05-05 08:59] LABS: BASOPHILS ABSOLUTE AUTO 0.02 K/mm3 (0.00-0.23); BASOPHILS PERCENT AUTO 0 % (0-2); EOSINOPHILS ABSOLUTE AUTO 0.16 K/mm3 (0.00-0.68); EOSINOPHILS PERCENT AUTO 2 % (0-6); Hematocrit 30.9 % (37.0-53.0); Hemoglobin 10.3 g/dL (13.5-17.5); IMMATURE GRAN ABSOLUTE AUTO 0.03 K/mm3 (0.00-0.10); IMMATURE GRAN PERCENT AUTO 0 % (0-1); LYMPHOCYTES ABSOLUTE AUTO 1.34 K/mm3 (0.84-5.20); LYMPHOCYTES PERCENT AUTO 13 % (21-46); MONOCYTES ABSOLUTE AUTO 0.82 K/mm3 (0.16-1.47); MONOCYTES PERCENT AUTO 8 % (4-13); Mean Corpuscular HGB 32.5 pg (26.0-34.0); Mean Corpuscular HGB Conc 33.3 g/dL (31.5-36.5); Mean Corpuscular Volume 98 fL (80-100); Mean Platelet Volume 11.5 fL (9.1-12.4); NEUTROPHILS ABSOLUTE AUTO 8.17 K/mm3 (1.96-9.15); NEUTROPHILS PERCENT AUTO 78 % (41-73); Platelet Count 186 K/mm3 (150-400); RDW Coefficient Variation 12.9 % (11.7-14.2); RDW Standard Deviation 46.3 fL (35.1-46.3); Red Blood Cell Count 3.17 M/mm3 (4.30-5.90); White Blood Cell Count 10.54 K/mm3 (4.00-11.30)
[2025-05-05 09:18] LABS: Albumin, Blood 2.3 g/dL (3.4-5.0); Albumin/Globulin Ratio 0.5 (0.8-1.8); Bilirubin, Total 0.3 mg/dL (0.1-1.0); Bun/Creatinine Ratio 27.7 (12.0-20.0); Creatinine, Blood 1.95 mg/dL (0.60-1.20); Potassium, Blood 2.8 mmol/L (3.5-5.5); Total Protein, Blood 7.3 g/dL (6.4-8.2)
[2025-05-05] MEDS ORDERED: Potassium Chl 20MEQ/Water100ML 100 ML IV ONE (11:30)
[2025-05-05] MEDS ORDERED: Potassium Chloride 20 MEQ TabCR PO ONE (11:30)
[2025-05-05 11:42] VITALS: BP 133/47
[2025-05-05] MEDS ORDERED: NS 250 ML IV PRN (11:55)
[2025-05-05] MEDS ORDERED: POTCHL20ER PO (14:22)
--- NOTE | 2025-05-05 14:41 | NUR ---
POTASSIUM OSWALDO COMPLETE. CALLED LAB FOR CMP BLOOD DRAW. CARE ONGOING.
[2025-05-05 15:48] VITALS: BP 123/43
[2025-05-05 16:03] LABS: Albumin, Blood 2.3 g/dL (3.4-5.0); Albumin/Globulin Ratio 0.4 (0.8-1.8); Bilirubin, Total 0.2 mg/dL (0.1-1.0); Bun/Creatinine Ratio 25.5 (12.0-20.0); Creatinine, Blood 1.92 mg/dL (0.60-1.20); Globulin, Blood 5.2 g/dL (2.2-4.0); Potassium, Blood 3.4 mmol/L (3.5-5.5); Total Protein, Blood 7.5 g/dL (6.4-8.2)
--- NOTE | 2025-05-05 16:41 | NUR ---
DISCHARGE SUMMARY: A&Ox4. PLEASANT AND COOPERATIVE WITH CARE. CALLS APPROPRIATELY AND IS ABLE TO ADVOCATE NEEDS EFFECTIVELY. AMBULATES WITH 1 PERSON AST AND FWW. PT HAS AN OSTOMNY AND URIOSTOMY. TAKES MEDS WHOLE WITH WATER. TELE REMOVED. PATIENT PROVIDED WITH COPY OF DISCHARGE PLAN AND MEDICATION LIST. MED REC FAXED TO PHARMACY. INSTRUCTED TO FOLLOW-UP WITH PCP IN 7 TO 10 DAYS . ALL QUESTIONS ANSWERED TO THIS NURSES ABILITY AND PATIENT VOICED UNDERSTANDING OF DISCHARGE PLAN. IV REMOVED AND PRESSURE DRESSING PLACED APPLIED. LEFT FLOOR WITH ALL BELONGINGS AND DISCHARGE PACKET, AND TRANSPORTATION PROVIDED BY THIS SWING FRAME GRINDER OPERATOR TO CAR.
== END 2025-05-05 16:38 | disposition home or self-care (01) | DRG 683 ==
LOC: ER 16:04 → MEDS 20:30
PROVIDERS: Emergency Medicine; Family Medicine; Internal Medicine; ADMIT Internal Medicine
PROC: 5A09457 Assistance with Respiratory Ventilation, 24-96 Consecutive Hours, Continuous Positive Airway Pressure (ICD-10-PCS; principal; 2025-05-03)
DX: N17.9 Acute kidney failure, unspecified (principal); E87.20 Acidosis, unspecified; N39.0 Urinary tract infection, site not specified; E86.0 Dehydration; E87.5 Hyperkalemia; I12.9 Hypertensive chronic kidney disease with stage 1 through stage 4 chronic kidney disease, or unspecified chronic kidney disease; N18.30 Chronic kidney disease, stage 3 unspecified; I25.10 Atherosclerotic heart disease of native coronary artery without angina pectoris; G47.33 Obstructive sleep apnea (adult) (pediatric); N20.0 Calculus of kidney; R07.9 Chest pain, unspecified; D63.1 Anemia in chronic kidney disease; R32 Unspecified urinary incontinence; N13.30 Unspecified hydronephrosis; R76.9 Abnormal immunological finding in serum, unspecified; R94.6 Abnormal results of thyroid function studies; R94.5 Abnormal results of liver function studies; Z87.891 Personal history of nicotine dependence; Z85.46 Personal history of malignant neoplasm of prostate; Z85.038 Personal history of other malignant neoplasm of large intestine; Z79.02 Long term (current) use of antithrombotics/antiplatelets; Z79.899 Other long term (current) drug therapy; Z90.79 Acquired absence of other genital organ(s); Z95.1 Presence of aortocoronary bypass graft; Z93.3 Colostomy status
CPT/HCPCS: 36415; 76770; 80048; 80053; 80069; 81001; 82248; 82550; 83880; 84100; 84153; 84484; 85018; 85025; 87086; 93005; 93010; 93306; 94762; 96361; 96374; 97116; 97161; 97165; 97530; 99285-25; A9270; J0612; J0696; J1644; J1815; J3010; J3480; J7030; J7050; J7070